=== PATIENT | male | born 1960 | race Caucasian/White ===

== ENCOUNTER → 2016-11-03 | Outpatient (REF) | payer BC ==
[2016-11-03 15:21] LABS: FREE T4 0.93 NG/DL (0.76-1.46)
== END ==
LOC: M SFHCADAM 09:19
PROVIDERS: ATTEND Physician Assistant Medical
DX: E03.9 Hypothyroidism, unspecified (principal)

== ENCOUNTER → 2017-08-05 | Outpatient (REF) | payer BC ==
[2017-08-05 15:56] LABS: ALBUMIN 4.1 GM/DL (3.2-5.2); ALBUMIN/GLOBULIN RATIO 1.17 (1.00-1.93); ALKALINE PHOSPHATASE 83 U/L (45-117); ALT/SGPT 28 U/L (12-78); ANION GAP 8 MEQ/L (8-16); AST/SGOT 19 U/L (7-37); BILIRUBIN,TOTAL 0.8 MG/DL (0.2-1.0); BLOOD UREA NITROGEN 30 MG/DL (7-18); CALCIUM LEVEL 9.4 MG/DL (8.5-10.1); CARBON DIOXIDE LEVEL 29 MEQ/L (21-32); CHLORIDE LEVEL 107 MEQ/L (98-107); CREATININE FOR GFR 1.23 MG/DL (0.70-1.30); FREE T4 1.06 NG/DL (0.76-1.46); GLOMERULAR FILTRATION RATE > 60.0 (>56); GLUCOSE, FASTING 106 MG/DL (70-105); SODIUM LEVEL 144 MEQ/L (136-145); TOTAL PROTEIN 7.6 GM/DL (6.4-8.2)
[2017-08-05 16:02] LABS: POTASSIUM SERUM 5.2 MEQ/L (3.5-5.1)
== END ==
LOC: M SFHCADAM 10:00
DX: E03.9 Hypothyroidism, unspecified (principal)
CPT/HCPCS: 84443

== ENCOUNTER → 2018-05-23 | Outpatient (CLI) | payer BC | LOC: M ADAMS 09:52 | DX: R05 Cough (principal) | CPT/HCPCS: 71046 ==

== ENCOUNTER → 2018-08-08 | Outpatient (REF) | payer BC ==
[2018-08-08 13:44] LABS: BASO # 0.1 10^3/uL (0.0-0.2); BASO % 1.5 % (0.0-1.0); EOS # 0.3 10^3/uL (0.0-0.50); EOS % 6.3 % (0.0-3.0); HEMOGLOBIN 15.3 g/dl (13.5-17.5); LYMPH # 1.5 10^3/uL (1.5-4.5); LYMPH % 28.6 % (24.0-44.0); MEAN CORPUSCULAR HEMOGLOBIN 29.4 pg (27.0-33.0); MEAN CORPUSCULAR HGB CONC 32.6 g/dl (32.0-36.5); MEAN CORPUSCULAR VOLUME 90.2 fl (80.0-96.0); MONO # 0.5 10^3/uL (0.0-0.8); MONO % 9.5 % (0.0-5.0); NEUTROPHILS # 2.9 10^3/uL (1.8-7.7); NEUTROPHILS % 53.5 % (36.0-66.0); PLATELET COUNT, AUTOMATED 184 10^3/uL (150-450); RED BLOOD COUNT 5.21 10^6/uL (4.30-6.10); WHITE BLOOD COUNT 5.4 10^3/uL (4.0-10.0)
[2018-08-08 14:00] LABS: ALBUMIN 3.8 GM/DL (3.2-5.2); ALT/SGPT 41 U/L (12-78); BILIRUBIN,TOTAL 0.8 MG/DL (0.2-1.0); BLOOD UREA NITROGEN 29 MG/DL (7-18); CALCIUM LEVEL 8.8 MG/DL (8.5-10.1); CARBON DIOXIDE LEVEL 27 MEQ/L (21-32); CHLORIDE LEVEL 105 MEQ/L (98-107); CHOLESTEROL LEVEL 234 MG/DL (<200); CHOLESTEROL RISK RATIO 3.441 (<5); CREATININE FOR GFR 1.05 MG/DL (0.70-1.30); GLOMERULAR FILTRATION RATE > 60.0 (>56); GLUCOSE, FASTING 103 MG/DL (70-100); HDL CHOLESTEROL 68 MG/DL (>40); LDL CHOLESTEROL 144 MG/DL (<100); NON-HDL-C 166 MG/DL; POTASSIUM SERUM 4.6 MEQ/L (3.5-5.1); SODIUM LEVEL 141 MEQ/L (136-145); TOTAL PROTEIN 7.5 GM/DL (6.4-8.2); TRIGLYCERIDES LEVEL 110 MG/DL (<150)
[2018-08-08 14:24] LABS: HEMOGLOBIN A1c 5.5 %
== END ==
LOC: M SFHCADAM 07:56
PROVIDERS: ATTEND Physician Assistant Medical
DX: E03.9 Hypothyroidism, unspecified (principal); E66.01 Morbid (severe) obesity due to excess calories

== ENCOUNTER → 2018-11-07 | Outpatient (REF) | payer BC ==
[2018-11-07 12:58] LABS: HEMATOCRIT 46.3 % (42.0-52.0); HEMOGLOBIN 15.1 g/dl (13.5-17.5); MEAN CORPUSCULAR HEMOGLOBIN 29.5 pg (27.0-33.0); MEAN CORPUSCULAR HGB CONC 32.6 g/dl (32.0-36.5); MEAN CORPUSCULAR VOLUME 90.4 fl (80.0-96.0); PLATELET COUNT, AUTOMATED 212 10^3/uL (150-450); RED BLOOD COUNT 5.12 10^6/uL (4.30-6.10); WHITE BLOOD COUNT 5.2 10^3/uL (4.0-10.0)
[2018-11-07 13:10] LABS: BLOOD UREA NITROGEN 27 MG/DL (7-18); CALCIUM LEVEL 8.7 MG/DL (8.5-10.1); CARBON DIOXIDE LEVEL 28 MEQ/L (21-32); CHLORIDE LEVEL 106 MEQ/L (98-107); CREATININE FOR GFR 0.97 MG/DL (0.70-1.30); GLOMERULAR FILTRATION RATE > 60.0 (>56); GLUCOSE, FASTING 108 MG/DL (70-100); SODIUM LEVEL 141 MEQ/L (136-145)
== END ==
LOC: M SFHCADAM 09:10
PROVIDERS: ATTEND Family Medicine
DX: Z87.19 Personal history of other diseases of the digestive system (principal); R10.9 Unspecified abdominal pain

== ENCOUNTER → 2018-11-07 | Outpatient (CLI) | payer BC ==
[~2018-11-07] MED LIST: GASTROGRAFIN SOLUTION 30ML (Q9963) As Ordered ONE; ISOVUE-370 76% 100ML VIAL (Q9967) As Ordered ONE
--- NOTE | 2018-11-07 12:35 | REP ---
CT of the abdomen and pelvis with IV and oral contrast: Comparison is 01/23/2015. There are multiple descending colon and sigmoid colon diverticula as previously. There is colonic wall thickening at the junction of the descending colon and sigmoid colon. There are spiculation into the pericolonic mesentery at the location of wall thickening. The findings are nonspecific and could represent acute on chronic diverticulitis. However, neoplasm is also a diagnostic consideration. The visualized lung ragland are unremarkable. The hepatic parenchyma is unremarkable. A simple cyst is again noted at the medial margin of the right lobe, unchanged. The gallbladder, pancreas, spleen, adrenals and kidneys are unchanged. The abdominal aorta and periaortic area are unchanged. There is no bowel distension or obstruction. The mesentery is otherwise unremarkable. Pelvis: The appendix is unremarkable. There is no ascites or adenopathy. The bladder is unremarkable. There are changes in the distal colon as described. Impression: Wall thickening of the colon at the junction of the descending colon and sigmoid colon where there are multiple diverticula. The wall thickening is accompanied by spiculation into the adjacent mesentery. Findings could represent acute on chronic diverticulitis. However, neoplasm is also a diagnostic consideration. Electronically Signed by Robin Lazar MD 11/07/2018 12:27 P
== END ==
LOC: M RAD 10:07
PROVIDERS: ATTEND Family Medicine
DX: R10.9 Unspecified abdominal pain (principal)
CPT/HCPCS: 74177; Q9963; Q9967

== ENCOUNTER → 2019-03-15 | Outpatient (REF) | payer BC ==
[2019-03-15 14:50] LABS: BASO # 0.1 10^3/uL (0.0-0.2); BASO % 1.3 % (0.0-1.0); EOS # 0.3 10^3/uL (0.0-0.50); EOS % 7.1 % (0.0-3.0); HEMATOCRIT 46.6 % (42.0-52.0); HEMOGLOBIN 15.5 g/dl (13.5-17.5); LYMPH # 1.6 10^3/uL (1.5-4.5); LYMPH % 34.6 % (24.0-44.0); MEAN CORPUSCULAR HEMOGLOBIN 30.6 pg (27.0-33.0); MEAN CORPUSCULAR HGB CONC 33.3 g/dl (32.0-36.5); MEAN CORPUSCULAR VOLUME 91.9 fl (80.0-96.0); MONO # 0.5 10^3/uL (0.0-0.8); MONO % 10.5 % (0.0-5.0); NEUTROPHILS # 2.1 10^3/uL (1.8-7.7); NEUTROPHILS % 45.8 % (36.0-66.0); PLATELET COUNT, AUTOMATED 166 10^3/uL (150-450); RED BLOOD COUNT 5.07 10^6/uL (4.30-6.10); WHITE BLOOD COUNT 4.5 10^3/uL (4.0-10.0)
[2019-03-15 15:03] LABS: ALT/SGPT 55 U/L (12-78); BLOOD UREA NITROGEN 16 MG/DL (7-18); CALCIUM LEVEL 9.2 MG/DL (8.5-10.1); CARBON DIOXIDE LEVEL 27 MEQ/L (21-32); CHLORIDE LEVEL 106 MEQ/L (98-107); CREATININE FOR GFR 1.06 MG/DL (0.70-1.30); GLOMERULAR FILTRATION RATE > 60.0 (>56); GLUCOSE, FASTING 97 MG/DL (70-100); POTASSIUM SERUM 4.6 MEQ/L (3.5-5.1); RHEUMATOID FACTOR QUANT < 10.0 IU/ML (<15.0); SODIUM LEVEL 139 MEQ/L (136-145); TOTAL PROTEIN 7.3 GM/DL (6.4-8.2)
[2019-03-15 15:08] LABS: THYROID PEROXIDASE ANTIBODY 542.3 U/ML (<60.0)
[2019-03-15 15:23] LABS: ERYTHROCYTE SEDIMENTATION RATE 2 mm/hr (0-20)
[2019-03-22 00:06] LABS: ANTINUCLEAR ANTIBODIES DIRECT Negative (Negative); IGE RECEPTOR ABY 1 2.8 (<10); THRYOGLOBULIN ANTIBODIES (ATA) < 1.0 IU/mL (0.0-0.9); THYROGLOBULIN QUANTITATIVE 1.2 ng/mL (1.4-29.2)
== END ==
LOC: M LABSMT 12:51
PROVIDERS: ATTEND Allergy & Immunology Allergy
DX: L50.1 Idiopathic urticaria (principal); L50.3 Dermatographic urticaria

== ENCOUNTER 2019-09-14 07:08 | Inpatient (IN) | payer BC ==
[~2019-09-14] VITALS: Ht 180.3 cm; Wt 111.1 kg
[2019-09-14] MEDS ORDERED: FAMO20TA5 PO (07:16)
[2019-09-14] MEDS ORDERED: LEVO25TA5 PO (07:16)
[2019-09-14] MEDS ORDERED: LEVOTAB10 PO (07:16)
[2019-09-14] MEDS ORDERED: NS 1,000 ML IV ONE (07:45)
[2019-09-14 08:04] LABS: BASO # 0.1 10^3/uL (0.0-0.2); BASO % 0.5 % (0.0-1.0); EOS # 0.2 10^3/uL (0.0-0.5); EOS % 1.9 % (0.0-3.0); HEMATOCRIT 50.8 % (42.0-52.0); HEMOGLOBIN 16.8 g/dl (13.5-17.5); LYMPH # 1.2 10^3/uL (1.5-5.0); LYMPH % 10.9 % (24.0-44.0); MEAN CORPUSCULAR HEMOGLOBIN 29.8 pg (27.0-33.0); MEAN CORPUSCULAR HGB CONC 33.1 g/dl (32.0-36.5); MEAN CORPUSCULAR VOLUME 90.1 fl (80.0-96.0); MONO # 1.1 10^3/uL (0.0-0.8); MONO % 9.8 % (0.0-5.0); NEUTROPHILS # 8.5 10^3/uL (1.5-8.5); NEUTROPHILS % 76.3 % (36.0-66.0); PLATELET COUNT, AUTOMATED 193 10^3/uL (150-450); RED BLOOD COUNT 5.64 10^6/uL (4.30-6.10); WHITE BLOOD COUNT 11.1 10^3/uL (4.0-10.0)
[2019-09-14] MEDS ORDERED: ISOVUE-370 76% 100ML VIAL (Q9967) As Ordered ONE (08:08)
[2019-09-14 08:29] LABS: ALBUMIN 3.8 GM/DL (3.2-5.2); BILIRUBIN,DIRECT 0.3 MG/DL (0.0-0.2); BILIRUBIN,TOTAL 1.4 MG/DL (0.2-1.0); TOTAL PROTEIN 7.8 GM/DL (6.4-8.2)
--- NOTE | 2019-09-14 08:55 | REP ---
Clinical: Left lower quadrant pain. History of diverticulitis. Technique: Axial contrast enhanced images from the lung bases to the pubic symphysis with coronal and sagittal re-formations using 100 ml Isovue 370 intravenous contrast material. Comparison: 11/07/2018. Findings: There is extensive mucosal thickening / enhancement and pericolonic inflammatory stranding surrounding the midsigmoid colon consistent with diverticulitis. There appears to be a 3.1 x 3.1 x 3.5 cm rim enhancing fluid collection extending from the wall of the sigmoid colon into the adjacent superior wall of the bladder with bladder wall thickening / enhancement and surrounding inflammatory change. Findings are consistent with abscess. This abscess collection does not appear to breech the bladder wall and does not definitively demonstrate true fistulous connection into the bladder lumen. There is no evidence for associated bowel obstruction or free air to suggest perforation. Secondary inflammatory changes to the pelvic small bowel is suggested. The remainder of the enteric system is without acute process. Hepatic steatosis with small hepatic cyst noted. Spleen, pancreas, gallbladder, bilateral adrenal glands and kidneys are normal. Further evaluation of the pelvis demonstrates normal prostate/seminal vesicles along with small fat containing a forming inguinal hernias (left greater than right) no significant ascites. No retroperitoneal adenopathy. Vascular structures are normal. Skeletal structures are intact. Lung bases are clear. Impression: Complicated diverticulitis with abscess extending into the anterior superior wall of the bladder and surrounding inflammatory changes to the pelvis. Electronically Signed by Ramon Hawthorne MD 09/14/2019 08:46 A
[2019-09-14] MEDS ORDERED: PIPERACILLIN/TAZOBACTAM SOD 3.375 GM in D5W MINI-BAG PLUS 50 ML IV ONE (09:45)
[2019-09-14] MEDS ORDERED: LR 1,000 ML IV SCH (12:30)
[2019-09-14] MEDS ORDERED: ACETAMINOPHEN TAB 650MG DOSE (2X325MG) PO PRN (13:15)
[2019-09-14] MEDS ORDERED: MORPHINE 2 MG/ML 1ML VIAL (J2270) IV PRN (13:15)
[2019-09-14] MEDS: LR 1,000 ML IV SCH ×2 (14:00→22:47)
[2019-09-14 14:54] VITALS: BP 148/88
[2019-09-14] MEDS: KETOROLAC 30 MG/ML VIAL (J1885) IV PRN (16:54)
[2019-09-14] MEDS: PIPERACILLIN/TAZOBACTAM SOD 3.375 GM in D5W MINI-BAG PLUS 50 ML IV SCH ×2 (16:54→21:16)
[2019-09-14 18:00] VITALS: BP 110/64
--- NOTE | 2019-09-14 18:03 | HPE ---
DATE OF ADMISSION: 09/14/2019 ADMITTING DIAGNOSIS: Sigmoid diverticulitis with abscess. HISTORY OF PRESENT ILLNESS: The patient is a pleasant 58-year-old man who has a history of several prior episodes of diverticulitis. He has not been admitted to the hospital before. He had a colonoscopy in [address] Alvarado had described as being for evaluation post diverticulitis. He presented to the hospital this morning just before 7 a.m. reporting that he on Wednesday past, which would be September 11, developed some fever and some muscle aches and abdominal pain. He described having a strong sensation of his testicles being held in a vice. He noted discomfort with voiding. On Wednesday and Wednesday of this week, he developed some diarrhea. Today, he has actually felt a bit better but does note pain in the lower abdomen near the midline. In the emergency department, he underwent evaluation with some lab work and then had a CT scan of the abdomen and pelvis. The CT shows an approximately 3 cm abscess located between the sigmoid colon and the top of the bladder. There is a small air bubble within the abscess but no evidence of air within the bladder. He is now being admitted to undergo drainage of his abscess and antibiotic therapy for his diverticulitis. ALLERGIES: The patient denies any known drug allergies. CURRENT MEDICATIONS: - famotidine 20 mg by mouth daily as needed - levothyroxine 25 mcg by mouth daily - levocetirizine dihydrochloride 5 mg tablet daily as needed MEDICAL HISTORY: Significant for as some occasional rectal bleeding, and he has been found to have hemorrhoids. He has obesity. He has hypothyroidism. He has had some reflux in the past. PAST SURGICAL HISTORY: He underwent a left knee reconstruction for ligamentous damage in 1980 and had repair of the fingers of his left hand in 2010. 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 He denies tobacco use or significant alcohol intake. FAMILY HISTORY: His mother apparently had colon cancer at age 76, and his father had what sounds like a large colon polyp. He has an older brother with prostate cancer. REVIEW OF SYSTEMS: Reveals no history of chest pain, palpitations, or shortness of breath. He denies any cough, wheezing, or sputum abduction. He has not had any urinary symptoms until he developed the discomfort with voiding associated with his current problem. He has not had any history of kidney stones. He has had some diarrhea recently, just associated with this episode of diverticulitis, but denies any bleeding at this time. He denies any bone or joint issues. He has had no history of deep vein thrombosis (DVT) or pulmonary embolus. He has no history of seizure or stroke. PHYSICAL EXAMINATION: Reveals a pleasant man lying quietly on the emergency room (ER) stretcher. He is alert and oriented. Most recent vital signs show a temperature of 99.5 degrees, pulse of 82, respirations 17, and a blood pressure of 119/75. Room air saturation is normal at 97%. Skin is warm and dry. Sclerae are anicteric. Neck is supple without mass or bruit. Heart exam shows a regular rate and rhythm without murmur. The lungs are clear to auscultation bilaterally. The abdomen is somewhat obese. He has no evident abdominal scars. He has bowel sounds present. There is no tympany to percussion. The upper abdomen is without any tenderness to percussion. He does have some tenderness to percussion at the midline and extending to the left, perhaps 6-8 cm, in the suprapubic area. There is moderate to severe direct tenderness in this area. There is no mass appreciated. He has no evident hernia. There is no edema in the lower extremities. LABORATORY STUDIES: Show today white count of 11,000, hemoglobin of 17, hematocrit of 51, and a platelet count of 193,000. Differential count shows 76% neutrophils, 11% lymphocytes, and 10% monocytes. Chemistry profile shows normal electrolytes with a BUN of 22, creatinine of 1.2, and glucose of 133. His liver function tests show that his total and direct bilirubins are slightly elevated, but his other liver function tests are normal. Lipase is 95. Urinalysis shows specific gravity of greater than 1.060 with pH of 5. He has 1 white cell and 2 red cells per high-power field. The CT scan of the abdomen and pelvis I reviewed personally. This shows a 3 cm abscess between the sigmoid colon and the top of the bladder. He has evidence of some hepatic steatosis. I do note while looking in his x-ray records that he had a CT scan in October 2018 that showed some thickening and mild inflammation in the sigmoid colon at that time, consistent with mild diverticulitis. IMPRESSION: 1. Sigmoid diverticulitis with abscess. 2. Hypothyroidism. DISPOSITION: The patient is being admitted for management of his diverticular abscess. I have recommended that we continue the Zosyn that was started in the emergency room. I will keep him nothing by mouth for now. I have recommended that we obtain a CT-guided drainage of his abscess. I indicated that though he might respond to antibiotics alone, that the response is more certain to be favorable if the abscess is drained in association with the continuing antibiotics. Once the drain has been placed, we can put him back on a diet. Analgesics will be ordered, and I would anticipate he would stay in the hospital for 1-2 days and then be able to be discharged home on antibiotics with the drain in place. The patient had an opportunity to ask questions. These were answered to the best of my ability. He desires to proceed as I have recommended it. AMARILIS
[2019-09-14 22:00] VITALS: BP 135/80
[2019-09-15] VITALS (9 sets, daily range): BP systolic 107–145; BP diastolic 69–93
[2019-09-15] MEDS: PIPERACILLIN/TAZOBACTAM SOD 3.375 GM in D5W MINI-BAG PLUS 50 ML IV SCH ×4 (04:33→22:48)
[2019-09-15] MEDS: KETOROLAC 30 MG/ML VIAL (J1885) IV PRN ×3 (04:34→22:48)
[2019-09-15] MEDS: LR 1,000 ML IV SCH ×3 (06:00→19:46)
[2019-09-15 07:06] LABS: BASO % 0.5 % (0.0-1.0); EOS # 0.4 10^3/uL (0.0-0.5); EOS % 5.1 % (0.0-3.0); HEMATOCRIT 43.4 % (42.0-52.0); LYMPH # 1.1 10^3/uL (1.5-5.0); LYMPH % 14.5 % (24.0-44.0); MEAN CORPUSCULAR HEMOGLOBIN 29.2 pg (27.0-33.0); MEAN CORPUSCULAR HGB CONC 32.3 g/dl (32.0-36.5); MEAN CORPUSCULAR VOLUME 90.4 fl (80.0-96.0); MONO # 0.9 10^3/uL (0.0-0.8); MONO % 11.3 % (0.0-5.0); NEUTROPHILS # 5.4 10^3/uL (1.5-8.5); PLATELET COUNT, AUTOMATED 175 10^3/uL (150-450); WHITE BLOOD COUNT 7.9 10^3/uL (4.0-10.0)
[2019-09-15] MEDS ORDERED: SODIUM BICARBONATE 8.4% INJ 50MEQ 50 ML VIAL As Ordered ONE (10:18)
[2019-09-15] MEDS ORDERED: LIDOCAINE 1% MDV 20ML VIAL As Ordered ONE (10:18)
--- NOTE | 2019-09-15 10:29 | REP ---
Clinical: Bladder wall abscess. Comparison: CT dated 09/14/2019. Findings: A complex collection consistent with abscess is inseparable from the anterosuperior bladder wall and appears to communicate with the adjacent sigmoid colon. Collection measures approximately 5.8 x 2.8 x 3.4 cm. Bladder wall thickening is noted. Bladder volume currently measures 137 ml and appears fluid density without debris or gas to suggest fistula formation with the abscess and colon. Impression: 1. Abscess invading the anterior superior bladder wall extending from the adjacent sigmoid colon. Electronically Signed by Ramon Hawthorne MD 09/15/2019 10:21 A
--- NOTE | 2019-09-15 17:08 | REP ---
Ultrasound-guided abscess drainage The procedure was performed by ALTON Girard, under the direct supervision of Dr. Stephenson. The risks and benefits of the procedure were explained to the patient and informed consent was obtained both verbally and written. Directly prior to the start of the procedure, a formal timeout was completed in the procedure room. Under ultrasound guidance, the pelvic abscess superior to the bladder was localized and skin was marked. The skin was then prepped and draped in a sterile fashion. 15 ml of buffered lidocaine was used as a local anesthetic. Using ultrasound guidance, an 5-Italian multi side-hole catheter was inserted using trocar technique. 24 mL of pus was removed and sent to the laboratory for further analysis. The patient tolerated the procedure well and there were no immediate complications. After the appropriate monitored convalescence the patient was discharged from the department. Reviewed by ALTON Colorado 09/15/2019 01:25 P Electronically Signed by Brayden Stephenson MD 09/15/2019 04:59 P
--- NOTE | 2019-09-15 18:24 | IPN ---
DATE: 09/15/2019 HISTORY: The patient was admitted yesterday with diverticulitis with an abscess between his sigmoid colon and the bladder. He was having primarily voiding symptoms when he presented. Plan was for a CT-guided drainage of his abscess. Apparently, the radiology department could not accommodate this procedure yesterday, and he is scheduled for today. He has remained on Zosyn since admission. Vital signs show that he has been afebrile. His pulse is in the low 80s and his blood pressure is good. Intake and output show that yesterday he had 3000 recorded in (720 of that was oral), and his urine output is incompletely recorded. PHYSICAL EXAMINATION: The patient looks fairly comfortable, lying on the bed. Heart and lung exam was unremarkable. The abdomen is obese, and he still has some moderate direct tenderness low in the left lower quadrant. Laboratory studies this morning show white count of 8000, hemoglobin 14, hematocrit of 43, and a platelet count of 175,000. Differential count shows 68% neutrophils, 14% lymphocytes, and 11% monocytes. IMPRESSION: The patient is doing well with his intravenous (IV) antibiotics. He has been afebrile, though he continues to have pain and tenderness in his left lower quadrant. His white count is down from 11 to 8. PLAN: The patient will have his percutaneous drainage procedure performed today, and we will await the results of this. I would anticipate that he would be able to be discharged home with the catheter in place within the next day or two. I will be going out of town for the next week and will be signing this patient over to Dr. Carbajal for continuing care while I am away. AMARILIS
[2019-09-16 02:00] VITALS: BP 139/83
[2019-09-16] MEDS: PIPERACILLIN/TAZOBACTAM SOD 3.375 GM in D5W MINI-BAG PLUS 50 ML IV SCH ×2 (03:47→10:04)
[2019-09-16 06:00] VITALS: BP 133/72
[2019-09-16] MEDS: LR 1,000 ML IV SCH (06:10)
[2019-09-16] MEDS ORDERED: FLUBLOK(EGG FREE)(QUAD)INFLUENZA VACC 0.5ML SYRINGE (90682)18YRS&OLDER IM ONE (09:00)
[2019-09-16 10:00] VITALS: BP 153/94
[2019-09-16] MEDS ORDERED: METR-265 PO (10:07)
[2019-09-16] MEDS ORDERED: CIPR500T3 PO (10:07)
== END 2019-09-16 11:30 | disposition home or self-care (01) | DRG 223 ==
LOC: M ED 07:08 → M ED INP 13:06 → M MSPAV 14:57
PROVIDERS: ADMIT Surgery; ATTEND Surgery
PROC: 0D9N30Z Drainage of Sigmoid Colon with Drainage Device, Percutaneous Approach (ICD-10-PCS; principal; 2019-09-14)
DX: K57.80 Diverticulitis of intestine, part unspecified, with perforation and abscess without bleeding (principal); E03.9 Hypothyroidism, unspecified; Z79.899 Other long term (current) drug therapy; E66.9 Obesity, unspecified; K64.8 Other hemorrhoids; K21.9 Gastro-esophageal reflux disease without esophagitis

== ENCOUNTER → 2019-09-26 | Outpatient (REF) | payer BC ==
[~2019-09-26] MED LIST changes: +CIPR500T3 PO; +FAMO20TA5 PO; -GASTROGRAFIN SOLUTION 30ML (Q9963) As Ordered ONE; -ISOVUE-370 76% 100ML VIAL (Q9967) As Ordered ONE; +LEVO25TA5 PO; +LEVOTAB10 PO; +METR-265 PO
[2019-09-26 19:52] LABS: APPEARANCE, URINE TURBID (CLEAR); BACTERIA, URINE AUTO NEGATIVE (NEGATIVE); BASO # 0.1 10^3/uL (0.0-0.2); BASO % 0.8 % (0.0-1.0); BILIRUBIN, URINE AUTO NEGATIVE (NEGATIVE); BLOOD, URINE BLOOD NEGATIVE (NEGATIVE); COLOR, URINE YELLOW (YELLOW); EOS # 0.3 10^3/uL (0.0-0.5); EOS % 2.5 % (0.0-3.0); GLUCOSE, URINE (UA) AUTO NEGATIVE (NEGATIVE); HEMATOCRIT 44.9 % (42.0-52.0); HEMOGLOBIN 14.2 g/dl (13.5-17.5); KETONE, URINE AUTO NEGATIVE (NEGATIVE); LEUKOCYTE ESTERASE, URINE AUTO NEGATIVE (NEGATIVE); LYMPH # 1.8 10^3/uL (1.5-5.0); MEAN CORPUSCULAR HEMOGLOBIN 28.9 pg (27.0-33.0); MEAN CORPUSCULAR HGB CONC 31.6 g/dl (32.0-36.5); MEAN CORPUSCULAR VOLUME 91.4 fl (80.0-96.0); MONO # 0.9 10^3/uL (0.0-0.8); MONO % 8.8 % (0.0-5.0); MUCUS, URINE SMALL (NEGATIVE); NEUTROPHILS # 6.9 10^3/uL (1.5-8.5); NEUTROPHILS % 69.4 % (36.0-66.0); NITRITE, URINE AUTO NEGATIVE (NEGATIVE); PLATELET COUNT, AUTOMATED 331 10^3/uL (150-450); PROTEIN, URINE AUTO NEGATIVE (NEGATIVE); RBC, URINE AUTO 0 /HPF (0-3); RED BLOOD COUNT 4.91 10^6/uL (4.30-6.10); SPECIFIC GRAVITY URINE AUTO 1.023 (1.002-1.035); SQUAMOUS EPITHELIAL CELL UR AU 0 /HPF (0-6); UROBILINOGEN, URINE AUTO 0.2 mg/dL (0.0-2.0); WBC, URINE AUTO 4 /HPF (0-3)
[2019-09-26 20:22] LABS: ALBUMIN 3.8 GM/DL (3.2-5.2); ALT/SGPT 35 U/L (12-78); BILIRUBIN,TOTAL 0.5 MG/DL (0.2-1.0); BLOOD UREA NITROGEN 11 MG/DL (7-18); CALCIUM LEVEL 9.1 MG/DL (8.8-10.2); CARBON DIOXIDE LEVEL 30 MEQ/L (21-32); CHLORIDE LEVEL 104 MEQ/L (98-107); CREATININE FOR GFR 1.12 MG/DL (0.70-1.30); GLOMERULAR FILTRATION RATE > 60.0 (>49); GLUCOSE, FASTING 90 MG/DL (70-100); POTASSIUM SERUM 4.6 MEQ/L (3.5-5.1); SODIUM LEVEL 137 MEQ/L (136-145); TOTAL PROTEIN 7.6 GM/DL (6.4-8.2)
== END ==
LOC: M SFHCADAM 14:59
PROVIDERS: ATTEND Physician Assistant Medical
DX: K57.92 Diverticulitis of intestine, part unspecified, without perforation or abscess without bleeding (principal); R35.0 Frequency of micturition; R10.84 Generalized abdominal pain; R68.83 Chills (without fever)

== ENCOUNTER → 2019-09-27 | Outpatient (CLI) | payer BC ==
[~2019-09-27] MED LIST changes: +ISOVUE-370 76% 100ML VIAL (Q9967) As Ordered ONE
--- NOTE | 2019-09-27 09:27 | REP ---
CT ABDOMEN AND PELVIS WITH IV BUT WITHOUT ORAL CONTRAST: HISTORY: Diverticulitis. Urinary frequency and abdominal pain. Chills. Comparison CT study of the abdomen is from September [address] CONTRAST DOSE: 100 mL of intravenous Isovue [address] FINDINGS: Digital preliminary narrow gauge operator radiograph is unremarkable. Lung bases remain clear. There is mild diffuse fatty infiltration of the liver. There is a small hepatic cyst in the right lobe of the liver medially again noted unchanged. No abnormalities noted in the gallbladder or the pancreas. There are tiny cortical cysts affecting the kidneys. No hydronephrosis or renal calculus seen. Normal appendix is noted. Pelvic CT images again demonstrate evidence of sigmoid colon diverticulitis with a pericolonic diverticular abscess on and indenting the superior wall of the urinary bladder. This contains fluid and some air bubbles. It is a little larger measuring 4.8 cm in right to left dimension x 3.6 cm in craniocaudal span x 4.5 cm anterior to posterior. The superior wall the bladder is indented. There is some diffuse bladder wall thickening and some perivesical fat streaking. No evidence of free intraperitoneal air is seen. No other abscess is appreciated. IMPRESSION: Suprapubic/bladder wall abscess associated with the adjacent loop of inflamed sigmoid colon due to diverticulitis. The abscess cavity is somewhat larger than it was on September 14, 2019. Today's measurements 4.8 x 3.6 x 4.5 cm. It should be amendable to percutaneous drainage (ultrasound guidance). Electronically Signed by Brayden Stephenson MD 09/27/2019 02:05 P
== END ==
LOC: M RAD 08:29
PROVIDERS: ATTEND Family Medicine
DX: K57.92 Diverticulitis of intestine, part unspecified, without perforation or abscess without bleeding (principal); R35.0 Frequency of micturition; R10.84 Generalized abdominal pain; R68.83 Chills (without fever); K76.0 Fatty (change of) liver, not elsewhere classified; K76.89 Other specified diseases of liver; N28.1 Cyst of kidney, acquired; N30.80 Other cystitis without hematuria
CPT/HCPCS: 74177; Q9967

== ENCOUNTER → 2019-09-28 | Outpatient (CLI) | payer BC ==
[~2019-09-28] MED LIST changes: -ISOVUE-370 76% 100ML VIAL (Q9967) As Ordered ONE; +LIDOCAINE 1% MDV 20ML VIAL As Ordered ONE
[2019-09-28 14:45] VITALS: BP 124/74
--- NOTE | 2019-09-28 17:35 | REP ---
ULTRASOUND-GUIDED PELVIC ABSCESS DRAIN The procedure was performed under the direct supervision of Dr. Stephenson. The patient has a history of a suprapubic/bladder wall abscess, measuring 4.8 x 3.6 x 4.5 cm, associated with the adjacent loop of inflamed sigmoid colon due to diverticulitis, seen on a previous CT scan dated 09/27/2019. The risks and benefits of the procedure were explained to the patient and informed consent was obtained. The abscess was localized using ultrasound guidance. The skin was prepped and draped in a sterile fashion. 1% lidocaine was used as a local anesthetic. Using ultrasound guidance an 8-S[place] Arabian Skater APDL catheter was inserted using trocar technique. 60 ml of brown/red colored fluid was withdrawn and sent to lab for analysis. The abscess cavity was flushed with four 10 ml aliquots of sterile saline. The catheter was affixed to the skin and a sterile dressing was applied. The catheter was connected to a gravity drainage bag. The patient tolerated the procedure well and there were no immediate complications. After the appropriate amount of monitored convalescence the patient was discharged from the department. Electronically Signed by ALTON Johnson 09/28/2019 04:37 P Electronically Signed by Brayden Stephenson MD 09/28/2019 05:26 P
== END ==
LOC: M IRPRO 12:41
PROVIDERS: ATTEND Surgery
DX: K57.20 Diverticulitis of large intestine with perforation and abscess without bleeding (principal)

== ENCOUNTER → 2020-01-04 | Outpatient (REF) | payer BC ==
[~2020-01-04] MED LIST changes: +FAMO40TA3 PO; -LIDOCAINE 1% MDV 20ML VIAL As Ordered ONE
[2020-01-04 17:57] LABS: BASO # 0.1 10^3/uL (0.0-0.2); BASO % 0.7 % (0.0-1.0); EOS # 0.3 10^3/uL (0.0-0.5); EOS % 3.4 % (0.0-3.0); HEMATOCRIT 46.7 % (42.0-52.0); HEMOGLOBIN 15.1 g/dl (13.5-17.5); LYMPH # 1.5 10^3/uL (1.5-5.0); LYMPH % 17.1 % (24.0-44.0); MEAN CORPUSCULAR HEMOGLOBIN 29.9 pg (27.0-33.0); MEAN CORPUSCULAR HGB CONC 32.3 g/dl (32.0-36.5); MEAN CORPUSCULAR VOLUME 92.5 fl (80.0-96.0); MONO % 11.6 % (0.0-5.0); NEUTROPHILS # 5.9 10^3/uL (1.5-8.5); NEUTROPHILS % 66.6 % (36.0-66.0); PLATELET COUNT, AUTOMATED 259 10^3/uL (150-450); RED BLOOD COUNT 5.05 10^6/uL (4.30-6.10); WHITE BLOOD COUNT 8.8 10^3/uL (4.0-10.0)
[2020-01-04 17:59] LABS: AMORPHOUS SEDIMENT SMALL (NEGATIVE); APPEARANCE, URINE TURBID (CLEAR); BACTERIA, URINE AUTO NEGATIVE (NEGATIVE); BILIRUBIN, URINE AUTO NEGATIVE (NEGATIVE); BLOOD, URINE BLOOD 2+ (NEGATIVE); COLOR, URINE AMBER (YELLOW); GLUCOSE, URINE (UA) AUTO NEGATIVE (NEGATIVE); KETONE, URINE AUTO NEGATIVE (NEGATIVE); LEUKOCYTE ESTERASE, URINE AUTO 2+ (NEGATIVE); MUCUS, URINE LARGE (NEGATIVE); NITRITE, URINE AUTO NEGATIVE (NEGATIVE); PROTEIN, URINE AUTO 2+ mg/dL (NEGATIVE); RBC, URINE AUTO 68 /HPF (0-3); SPECIFIC GRAVITY URINE AUTO 1.036 (1.002-1.035); SQUAMOUS EPITHELIAL CELL UR AU 0 /HPF (0-6); UROBILINOGEN, URINE AUTO 0.2 mg/dL (0.0-2.0); WBC, URINE AUTO TNTC /HPF (0-3)
[2020-01-04 18:29] LABS: ALBUMIN 3.5 GM/DL (3.2-5.2); ALT/SGPT 40 U/L (12-78); BILIRUBIN,TOTAL 0.8 MG/DL (0.2-1.0); BLOOD UREA NITROGEN 16 MG/DL (7-18); CALCIUM LEVEL 8.9 MG/DL (8.8-10.2); CARBON DIOXIDE LEVEL 29 MEQ/L (21-32); CHLORIDE LEVEL 104 MEQ/L (98-107); GLOMERULAR FILTRATION RATE > 60.0 (>49); GLUCOSE, FASTING 92 MG/DL (70-100); POTASSIUM SERUM 4.6 MEQ/L (3.5-5.1); SODIUM LEVEL 138 MEQ/L (136-145); TOTAL PROTEIN 7.6 GM/DL (6.4-8.2)
== END ==
LOC: M SFHCADAM 16:04
PROVIDERS: ATTEND Physician Assistant Medical
DX: R30.0 Dysuria (principal)

== ENCOUNTER → 2020-01-05 | Outpatient (CLI) | payer BC ==
[~2020-01-05] MED LIST changes: +GASTROGRAFIN SOLUTION 30ML (Q9963) As Ordered ONE; +ISOVUE-370 76% 100ML VIAL As Ordered ONE
--- NOTE | 2020-01-05 14:30 | REP ---
CT ABDOMEN AND PELVIS WITH AND WITHOUT IV CONTRAST, WITH ORAL CONTRAST: CT abdomen and pelvis is performed following oral contrast administration, prior to and following the intravenous administration of 100 mL of Isovue 370. Sagittal and coronal reconstruction images are performed. Comparison is made of a prior study of 09/27/2019. Visualized lung bases are clear. There are is diffuse fatty infiltration of the liver. The spleen is normal in size with no intrinsic abnormality. The gallbladder is grossly unremarkable. There is a small cyst of the inferior right lobe of the liver. Adrenal glands are normal. No pancreatic mass is seen. There is a small cyst of the right kidney with no hydronephrosis. There is mild atherosclerotic calcification of the abdominal aorta without aneurysm. There is no adenopathy, free air or free fluid. The appendix is normal. Once again, there is evidence of diffuse sigmoid diverticulitis. Once again, there is an abscess along the dome of the bladder. It is similar in size compared to the prior study of 09/27/2019. It measures approximately 3.0 x 5.5 x 3.8 cm. I suspect that there is a fistula between the sigmoid colon and the abscess cavity. No air is seen in the abscess cavity or in the bladder. The bladder appears mildly thickened. IMPRESSION: Once again, there is evidence of sigmoid diverticulitis. Also, there is again evidence of an abscess along the dome of the bladder. The size is similar to the prior study of 09/27/2019 as discussed above. There also appears to be a fistula from the sigmoid colon to the abscess cavity. Electronically Signed by Robin Calvo MD 01/09/2020 06:35 P
== END ==
LOC: M RAD 11:30
PROVIDERS: ATTEND Physician Assistant Medical
DX: R10.32 Left lower quadrant pain (principal); R31.9 Hematuria, unspecified; K62.89 Other specified diseases of anus and rectum
CPT/HCPCS: 74178; Q9963; Q9967

== ENCOUNTER 2020-01-08 09:26 | Inpatient (IN) | payer BC ==
[~2020-01-08] VITALS: Ht 180.3 cm; Wt 104.0 kg
[~2020-01-08 09:26] MED LIST changes: -FAMO40TA3 PO; -GASTROGRAFIN SOLUTION 30ML (Q9963) As Ordered ONE; -ISOVUE-370 76% 100ML VIAL As Ordered ONE
[2020-01-08] MEDS ORDERED: MORPHINE 2 MG/ML 1ML VIAL (J2270) IV PRN (09:30)
[2020-01-08] MEDS ORDERED: KETOROLAC 30 MG/ML 1ML VIAL IV PRN (09:30)
[2020-01-08] MEDS ORDERED: ACETAMINOPHEN TAB 650MG DOSE (2X325MG) PO PRN (09:30)
[2020-01-08] MEDS ORDERED: oxyCODONE 5MG TAB PO PRN (09:30)
[2020-01-08 10:30] VITALS: BP 130/90
[2020-01-08] MEDS ORDERED: FAMO40TA3 PO (11:03)
[2020-01-08] MEDS ORDERED: METR-265 PO (11:05)
[2020-01-08] MEDS ORDERED: CIPR500T3 PO (11:05)
[2020-01-08] MEDS: LR 1,000 ML IV SCH ×2 (11:06→23:12)
[2020-01-08] MEDS ORDERED: LIDOCAINE 1% MDV 20ML VIAL As Ordered ONE (11:18)
[2020-01-08] MEDS: PIPERACILLIN/TAZOBACTAM SOD 3.375 GM in D5W MINI-BAG PLUS 50 ML IV SCH ×2 (14:29→18:05)
[2020-01-08 16:00] VITALS: BP 121/80
--- NOTE | 2020-01-08 18:27 | REP ---
ULTRASOUND-GUIDED PELVIC ABSCESS DRAIN The procedure was performed under the direct supervision of Dr. Stephenson. The patient has a history of a diverticular abscess along the dome of the bladder seen on a previous CT scan dated 01/05/2020. The risks and benefits of the procedure were explained to the patient and informed consent was obtained. The pelvic abscess was localized using ultrasound guidance. The skin was prepped and draped in a sterile fashion. 1% lidocaine was used as a local anesthetic. Using ultrasound guidance an 8-Japanese Skater APDL catheter was inserted using trocar technique. 30 ml of beige/red colored fluid was withdrawn and sent to lab for analysis. The catheter was affixed to the skin and a sterile dressing was applied. The patient tolerated the procedure well and there were no immediate complications. After the appropriate amount of monitored convalescence the patient was discharged from the department. Electronically Signed by ALTON Johnson 01/08/2020 03:28 P Electronically Signed by Brayden Stephenson MD 01/08/2020 06:18 P
[2020-01-08 20:00] VITALS: BP 135/79
[2020-01-08 23:25] VITALS: BP 119/79
[2020-01-09] MEDS: LR 1,000 ML IV SCH ×2 (00:24→05:32)
[2020-01-09] MEDS: PIPERACILLIN/TAZOBACTAM SOD 3.375 GM in D5W MINI-BAG PLUS 50 ML IV SCH ×4 (00:24→17:54)
--- NOTE | 2020-01-09 00:32 | HPE ---
DATE OF ADMISSION: 01/08/2020 ADMITTING DIAGNOSIS: Sigmoid diverticulitis with abscess. HISTORY OF PRESENT ILLNESS: The patient is a 58-year-old man with a history of several prior episodes of diverticulitis treated on an outpatient basis. In 2014, he had a colonoscopy by Dr. Alvarado in followup of his diverticulitis. He had been admitted in August 2019 with a several-day history of some fevers and lower abdominal pain. A CT scan revealed changes of diverticulitis in the sigmoid colon with an approximately 3 cm abscess located between the sigmoid colon and the top of the bladder. He was treated with antibiotics and seemed to do well. He underwent an ultrasound-guided abscess aspiration on September 15, 2019. His antibiotics were continued. His diet was advanced and he was discharged home on September 16, 2019. Unfortunately, he had returned to the hospital within about a week to 10 days with a recurrent event larger abscess. An ultrasound-guided drain placement was performed, and he was continued on antibiotics. His drain was removed on or about October 04, 2019, and he continued his antibiotics for a short time thereafter. He reports no problems. He did not follow up after that drain removal as he was feeling well. He reports that for as long as perhaps a week, he has had some discomfort in his suprapubic area in particular. He has had some voiding symptoms with frequent urinating that has inhibited his sleep at night. He has not reported any fevers or chills. He saw Olga Stallings in the [facility] on and had laboratory studies obtained. These were not significantly abnormal with a white count of only 9 and 66% neutrophils. He had a CT scan of the abdomen and pelvis obtained on January 05, 2020. This revealed evidence of diffuse sigmoid diverticulitis. There was an abscess noted along the dome of the bladder similar in size to what had been noted on September 27, 2019. The radiologist reported that he suspected a fistula between the sigmoid colon and the abscess cavity. He did report that there was no air seen in the abscess or in the bladder. I was contacted by Olga on Wednesday, January 05, 2020 in the afternoon. We discussed options for management, and he was started on antibiotics with ciprofloxacin and Flagyl. They were instructed to come to my office this morning or come to the emergency department if things worsened over the weekend. When seen in my office this morning, he reported significant voiding symptoms. He still denied any fevers or chills. He was exquisitely tender in the suprapubic area. The patient is now admitted for management of his recurrent diverticulitis with an abscess at the dome of the bladder. ALLERGIES: The patient reports no known drug allergies. MEDICATIONS AT THE TIME OF ADMISSION: The patient reports famotidine 40 mg by mouth nightly, levocetirizine 5 mg by mouth nightly, levothyroxine 25 mcg by mouth daily, and he has been taking ciprofloxacin and Flagyl for 1-2 days each. SURGICAL HISTORY: Significant for knee surgery for damage in 1980. He has had bilateral knee replacements subsequently. He had a repair of fingers of his left hand in 2010. MEDICAL HISTORY: His medical history is significant for obesity, hypothyroidism, and a history of some gastroesophageal reflux. 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 He denies any tobacco use or significant alcohol intake. FAMILY HISTORY: His mother had colon cancer age 76, and his father had what sounds like a large colon polyp. He has an older brother with prostate cancer. REVIEW OF SYSTEMS: Patient has had no chest pain or palpitations. He denies shortness of breath, cough or wheezing. He has not had a stroke or a mini stroke and denies any history of seizures. He denies any history of deep vein thrombosis (DVT) or pulmonary embolus. He had been feeling well for about 3 months since his last abscess was drained in early September. He has been voiding previously well but now is having multiple smaller voids about every 2 hours with significant pain. He has been eating very little over this past weekend. He denies any new bone or joint issues. PHYSICAL EXAM: Reveals a pleasant man who appears somewhat uncomfortable. He is alert and oriented. Vital signs: On admission showed temperature of 97.3, pulse of 82, respirations of 16 and a blood pressure of 130/90. Sclerae are anicteric. Mucous membranes are moist. Neck is supple without bruit. Heart exam shows a regular rate and rhythm. Lungs are clear to auscultation bilaterally. The abdomen is somewhat obese. He has some bowel sounds present. There is no tympany to percussion. There is moderate to marked tenderness to percussion in the suprapubic area near the midline and extending into the left lower quadrant. The upper abdomen is without significant tenderness. There is no sign of hernia. Extremities are without significant edema, and he has palpable radial and pedal pulses. His laboratory studies from the January 04, 2020 show a white count of 9, hemoglobin 15, hematocrit of 47 and a platelet count of 259,000. Differential count showed 67% neutrophils, 17% lymphocytes and 12% monocytes. Chemistry profile showed normal electrolytes with BUN of 16, creatinine 1.1 and a glucose of 92. Liver function tests were entirely normal. He did have a C-reactive protein that was 11.1. He had a urinalysis that showed too numerous to count white cells with 68 red cells. A culture from the is growing Streptococcus Gordonii. I reviewed his CT scan images from the January 05, 2020. The scan shows some fairly diffuse thickening and inflammation in the sigmoid colon. The sigmoid colon is fairly straight extending from the left lower quadrant where it meets the descending down into the pelvis. He has some obvious diverticulosis with marked inflammation. There is an air fluid accumulation at the anterior-superior aspect of the bladder. This is much better delineated on the after IV contrast images. This fluid collection is immediately adjacent to the sigmoid colon. There is no air seen in the abscess or in the bladder. IMPRESSION: 1. Recurrent sigmoid diverticulitis with abscess. 2. Hypothyroidism. 3. History of gastroesophageal reflux. 4. Obesity. PLAN: The patient is being admitted to the hospital for intravenous antibiotics and placement of an ultrasound-guided drain into his abscess. The patient clearly has significant diverticular disease, and I believe a resection would be appropriate. He now has his second episode of diverticulitis with development of an abscess between the colon and the bladder. He does have a urinary tract infection noted on urinalysis and culture from January 04, 2020. It may be that effectively he has a colovesical fistula, but he has not complained of any pneumaturia and there was no air seen in the bladder or abscess at the time of his recent CT scan. The patient will be kept nothing by mouth initially. I did speak with Dr. Fidencio Stephenson of radiology who has indicated that it should be possible to have the drain placed. We will keep him in the hospital after drain placement to continue his intravenous antibiotics and determine how best to proceed. It may be reasonable once his abscess has been drained and he has been on antibiotics for a couple of days to proceed directly to the surgery. The alternative would be to continue the drain and antibiotics until his drain can be removed and then wait for his inflammation to resolve before proceeding with surgery. It may be that he will not completely resolve his inflammation or develop another recurrence of infection prior to our being able to schedule him for surgery. We will discuss these issues over the next day or two to determine our course of action. Once the drain has been in place, he can be started back on some clear liquids.
[2020-01-09 02:00] VITALS: BP 103/57
[2020-01-09 06:00] VITALS: BP 105/58
[2020-01-09 08:16] LABS: BASO # 0.1 10^3/uL (0.0-0.2); EOS # 0.3 10^3/uL (0.0-0.5); EOS % 4.7 % (0.0-3.0); HEMATOCRIT 42.7 % (42.0-52.0); HEMOGLOBIN 14.1 g/dl (13.5-17.5); LYMPH % 17.3 % (24.0-44.0); MEAN CORPUSCULAR HEMOGLOBIN 29.8 pg (27.0-33.0); MEAN CORPUSCULAR VOLUME 90.3 fl (80.0-96.0); MONO # 0.6 10^3/uL (0.0-0.8); MONO % 11.1 % (0.0-5.0); NEUTROPHILS # 3.8 10^3/uL (1.5-8.5); NEUTROPHILS % 64.9 % (36.0-66.0); PLATELET COUNT, AUTOMATED 279 10^3/uL (150-450); RED BLOOD COUNT 4.73 10^6/uL (4.30-6.10); WHITE BLOOD COUNT 5.8 10^3/uL (4.0-10.0)
[2020-01-09 08:38] LABS: BLOOD UREA NITROGEN 13 MG/DL (7-18); CALCIUM LEVEL 8.4 MG/DL (8.8-10.2); CARBON DIOXIDE LEVEL 26 MEQ/L (21-32); CHLORIDE LEVEL 107 MEQ/L (98-107); CREATININE FOR GFR 1.04 MG/DL (0.70-1.30); GLOMERULAR FILTRATION RATE > 60.0 (>49); GLUCOSE, FASTING 120 MG/DL (70-100); POTASSIUM SERUM 4.1 MEQ/L (3.5-5.1); SODIUM LEVEL 139 MEQ/L (136-145)
[2020-01-09 10:00] VITALS: BP 139/77
[2020-01-09 14:00] VITALS: BP 140/82
[2020-01-09 18:00] VITALS: BP 138/80
[2020-01-09 22:00] VITALS: BP 116/74
[2020-01-10] MEDS: PIPERACILLIN/TAZOBACTAM SOD 3.375 GM in D5W MINI-BAG PLUS 50 ML IV SCH ×3 (00:48→11:29)
[2020-01-10 02:00] VITALS: BP 115/57
[2020-01-10] MEDS: LR 1,000 ML IV SCH (02:24)
[2020-01-10 06:00] VITALS: BP 115/60
[2020-01-10 10:00] VITALS: BP 113/68
--- NOTE | 2020-01-10 16:53 | IPN ---
DATE: 01/09/2020 HISTORY: The patient was admitted on the for treatment of a diverticular abscess adjacent to the dome of the bladder. He underwent an ultrasound-guided drain placement. He was noted on urine culture last week to have a Streptococcus urinary tract infection (UTI) when his gram stain from his drain placement showed gram-positive cocci and chains. Vital signs show that he has been afebrile since yesterday. His pulse is in the 60s and 70s only. Blood pressure is good. Intake and output shows that he has been taking some clear liquids well since yesterday evening. His urine output is good and his drain was recorded as having only 20 mL yesterday and 10 mL this morning. PHYSICAL EXAMINATION: The patient is awake and alert. He appears fairly comfortable at rest. He reports that he has little discomfort at rest. His urinary symptoms seem to have diminished somewhat. He has had no chills. He is tolerating liquids well with no nausea or vomiting. The abdomen is mildly obese but soft, though he is still somewhat tender in the area of his suprapubic drain. Laboratory studies show that his white count is 6 with a hemoglobin of 14, hematocrit of 43 and a platelet count of 279,000. Differential count shows 65% neutrophils, 17% lymphocytes, and 11% monocytes. Chemistry profile shows normal electrolytes, BUN 13, creatinine 1.0, and a glucose of 120. IMPRESSION: The patient is doing very well postop day #1 from ultrasound-guided drainage of his hairy vesicle abscess. PLAN: He will be continued on his IV Zosyn today. He was advised that he should remain on a low fiber diet for a few days at least to make sure that there is no evidence of significant narrowing in the sigmoid colon. We discussed the option of remaining in the hospital for possibly later in the week or discharge. He would favor going home in the morning. I think this is a reasonable approach and barring any unforeseen change between now in the morning we will plan on sending him home in the morning to complete a course of outpatient antibiotics.
--- NOTE | 2020-01-10 16:55 | IPN ---
DATE: 01/10/2020 HISTORY: The patient had his diverticular abscess adjacent to the bladder drained on the . He has remained afebrile with a pulse in the 60s to 70s and good blood pressure. Intake and output shows that he has had 20 mL out of his drain yesterday and 10 mL this morning. He is voiding well and reports that his urinary symptoms have diminished quite a bit. Physical exam shows that the abdomen is obese but soft, and his tenderness is clearly much less. The drain has a small amount of serosanguineous fluid in the tubing. IMPRESSION: The patient is doing well 2 days out from his drain placement with treatment with Zosyn. PLAN: The patient will be discharged home today. He has prescriptions for ciprofloxacin and Flagyl that he received on Wednesday of this past week, that is the . He will resume taking the Cipro and Flagyl. He has not been using any pain medications in the hospital and I will not provide him with any prescriptions. He can continue his other usual medications. I will plan on seeing him back in the office early next week, probably Wednesday the to consider removal of his drain. We will then start working toward a date for a sigmoid colectomy to try to eliminate the source of his recurrent abscess. He will contact my office if he develops any increased problems in the meantime.
== END 2020-01-10 13:22 | disposition home or self-care (01) | DRG 244 ==
LOC: M PCU 09:53 → M MSPAV 23:24
PROVIDERS: ADMIT Surgery; ATTEND Surgery
PROC: 0W9G40Z Drainage of Peritoneal Cavity with Drainage Device, Percutaneous Endoscopic Approach (ICD-10-PCS; principal; 2020-01-08 12:00)
DX: K57.80 Diverticulitis of intestine, part unspecified, with perforation and abscess without bleeding (principal); E03.9 Hypothyroidism, unspecified; E66.9 Obesity, unspecified; K21.9 Gastro-esophageal reflux disease without esophagitis; Z79.899 Other long term (current) drug therapy; Z96.651 Presence of right artificial knee joint; Z96.652 Presence of left artificial knee joint

== ENCOUNTER → 2020-02-02 | Outpatient (CLI) | payer BC ==
[~2020-02-02] MED LIST changes: +2 ANTIBIOTICS PO; +ACET-683 PO; +FAMO40TA3 PO; +SULF400T14 PO
== END ==
LOC: M LABSMTC 12:41
PROVIDERS: ATTEND Anesthesiology
DX: Z01.818 Encounter for other preprocedural examination (principal); Z11.59 Encounter for screening for other viral diseases
CPT/HCPCS: C9803; U0003

== ENCOUNTER 2020-02-06 08:21 | Inpatient (IN) | payer BC ==
--- NOTE | 2020-02-05 09:05 | HPE ---
DATE OF ADMISSION: 02/06/2020 CHIEF COMPLAINT: Recent recurrent sigmoid diverticulitis with abscess. HISTORY OF PRESENT ILLNESS: The patient is a 59-year-old man who is being admitted to undergo an elective sigmoid resection for recurring episodes of sigmoid diverticulitis and abscess. The patient has had several prior episodes of diverticulitis treated on an outpatient basis. In 2014, a colonoscopy was performed that revealed a few small mouth diverticula in the sigmoid colon. A single hyperplastic polyp was identified and biopsied at that time. The patient was admitted to [facility] in August 2019 with a several-day history of fevers and lower abdominal pain. A CT scan revealed changes of diverticulitis in the sigmoid colon with an approximately 3 cm abscess located between the sigmoid colon and the top of the bladder. He was initially treated with antibiotics and seemed to improve. An ultrasound-guided aspiration of his abscess was performed on September 15. His antibiotics were continued and he was discharged on September 16. Unfortunately, he returned to the hospital within about week to 10 days with a recurrent larger abscess. A drain was placed by ultrasound guidance and the abscess resolved with continued antibiotic therapy. The patient returned in about mid December with complaints of discomfort in the suprapubic area with frequent urination that inhibited his night time sleep. He was seen by his primary provider Olga Stallings in the [facility]. A CT scan of the abdomen and pelvis was obtained on January 04. This revealed diffuse sigmoid diverticulitis with recurrence of an abscess along the dome of the bladder between the sigmoid colon and the bladder. The radiologist reported that he suspected a fistula between the sigmoid colon and the abscess cavity. There was no air seen in the abscess or within the bladder at that time to confirm a colovesical fistula. The patient was admitted to [facility] on January 07 for further treatment. An ultrasound-guided drain placement was performed and he was continued on IV antibiotics. We had initially discussed possible surgery at that time, but elected instead to treat him for resolution of his abscess and have him come back for surgery. He was discharged from the hospital on January 09 and his drain was removed on the . He was continued on antibiotics until about the end of December and has had no further problems. He is now being admitted electively to undergo a robotic-assisted laparoscopic sigmoid colectomy. He will be performing a full mechanical and antibiotic bowel preparation the day before admission using SUPREP, neomycin, and Flagyl. ALLERGIES: The patient reports NO KNOWN DRUG ALLERGIES. MEDICATIONS: Include famotidine 40 mg by mouth daily, Synthroid 25 mcg by mouth daily and levocetirizine 5 mg by mouth daily. He has been taking Aleve p.r.n. for discomfort. MEDICAL HISTORY: Significant for obesity. He has hypothyroidism and a history of some gastroesophageal reflux disease. SURGICAL HISTORY: Significant for left knee reconstruction in 1980. He subsequently had bilateral knee replacements. He had a repair of the fingers of his left hand in 2010. 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 He denies any tobacco use or significant alcohol use. He denies any recreational drug use. FAMILY HISTORY: Father apparently has had what sounds like a large colon polyp and his mother had colon cancer at age 76. He has an older brother with prostate cancer. REVIEW OF SYSTEMS: The patient denies any chest pain or palpitations. He has no history of shortness of breath, cough or wheezing. He has not had a stroke or mini stroke and denies any history of seizures. He denies any history of deep vein thrombosis (DVT) or pulmonary embolus. He is not having any current gastrointestinal or urinary symptoms. He denies any new bone or joint issues. PHYSICAL EXAMINATION: Reveals a pleasant man in no acute distress. His weight is 235 pounds with a height of 5 feet 11 inches. This gives him a body mass index (BMI) of approximately 33. Sclerae are anicteric. Mucous membranes are moist. Neck is supple. He has no palpable lymphadenopathy and he has no cervical bruit. Lungs are clear to auscultation bilaterally. Heart exam shows a regular rate and rhythm which is not tachycardiac. The abdomen is mildly to moderately obese. He has active bowel sounds. The abdomen is soft and nontender without appreciable mass. There is no evidence of inguinal hernia. Extremities are without edema. He has bilateral knee scars consistent with prior surgery. He has palpable radial and pedal pulses bilaterally. IMPRESSION: 1. Recent recurrent acute sigmoid diverticulitis with abscess. 2. Hypothyroidism. 3. Obesity. 4. Gastroesophageal reflux disease. PLAN: The patient is being admitted to undergo a robotic-assisted laparoscopic sigmoid colectomy for recurring episodes of sigmoid diverticulitis with two episodes of abscess formation between the sigmoid colon and the bladder. He will perform a mechanical and antibiotic bowel preparation the day before admission. He will receive preoperative antibiotics intravenously as well. We will place a Eldridge catheter in the operating room. The plan is to proceed with a robotic-assisted laparoscopic surgery. He is without doubt going to have significant scarring between the sigmoid colon and the bladder. This may be severe enough to warrant conversion to an open procedure. It may also lead to a bladder perforation which would require repair. The patient was counseled that he should anticipate a hospital stay of perhaps 3-5 days. If conversion to an open procedure is necessary then his hospital stay may be longer. The risks of the procedure were discussed. Risks include, but are not limited to bleeding, infection, scarring, adverse drug reaction, need for further surgery, injury to internal organ, anastomotic leak, and hernia. He had an opportunity to ask questions. He desires to proceed with the surgery as I have outlined it. AMARILIS
[~2020-02-06] VITALS: Ht 180.3 cm; Wt 102.2 kg
[~2020-02-06 08:21] MED LIST changes: -2 ANTIBIOTICS PO; +LR 1,000 ML IV ONE
[2020-02-06] MEDS ORDERED: LACRILUBE (AKWA TEARS) OPHTH OINT 3.5 GM As Ordered ONE (08:26)
[2020-02-06] MEDS ORDERED: ROCURONIUM BROMIDE 50 MG/5 ML VIAL As Ordered ONE ×5 (08:30→16:43)
[2020-02-06] MEDS ORDERED: LIDOCAINE 2% 100MG/5ML SDV (FOR ANES.) As Ordered ONE ×5 (08:30→14:36)
[2020-02-06] MEDS ORDERED: propofoL 200 MG/20 ML VIAL As Ordered ONE (08:30)
[2020-02-06] MEDS ORDERED: MIDAZOLAM INJ 2MG/2ML VIAL (J2250 PER 1MG) As Ordered ONE (08:31)
[2020-02-06] MEDS ORDERED: fentaNYL 100 MCG/2 ML INJECTION (J3010) As Ordered ONE (08:31)
[2020-02-06] MEDS ORDERED: ONDANSETRON 4MG/2ML VIAL As Ordered ONE (08:32)
[2020-02-06] MEDS ORDERED: dexameTHASONE 4 MG/ML 1ML VIAL (J1100 PER 1MG) As Ordered ONE (08:32)
[2020-02-06] MEDS ORDERED: ACETAMINOPHEN 1000MG 100ML IV BTL (OFIRMEV) (J0131 PER 10MG) As Ordered ONE (08:34)
[2020-02-06] MEDS ORDERED: KETOROLAC 60MG 2ML VIAL As Ordered ONE (08:48)
[2020-02-06] MEDS ORDERED: SUGAMMADEX SODIUM 500 MG/5 ML VIAL (BRIDION) As Ordered ONE (08:48)
[2020-02-06] MEDS ORDERED: cefoTEtan DISODIUM 2 GM in D5W MINI-BAG PLUS 50 ML IV ONE (09:30)
[2020-02-06] MEDS ORDERED: ALVIMOPAN 12 MG CAPSULE (ENTEREG) PO ONE (09:30)
[2020-02-06] MEDS ORDERED: 2 ANTIBIOTICS PO (09:35)
[2020-02-06] MEDS ORDERED: BUPIVACAINE HCL 0.25% 30ML VIAL As Ordered ONE (10:22)
[2020-02-06] MEDS ORDERED: METHYLENE BLUE 0.5% (5MG/ML) 10 ML AMP (PROVAYBLUE) As Ordered ONE (10:29)
[2020-02-06] MEDS ORDERED: ALBUTEROL 6.7GM INHALER **FOR ANES. CART/OMNICELL ONLY As Ordered ONE (11:37)
[2020-02-06] MEDS ORDERED: fentaNYL 100 MCG/2 ML INJECTION (J3010) IV PRN (18:30)
[2020-02-06] MEDS ORDERED: LR 1,000 ML IV SCH (18:30)
[2020-02-06] MEDS ORDERED: oxyCODONE 5MG TAB PO PRN ×2 (18:30)
[2020-02-06] MEDS ORDERED: ACETAMINOPHEN TAB 650MG DOSE (2X325MG) PO PRN (18:30)
[2020-02-06] MEDS ORDERED: ONDANSETRON 4MG/2ML VIAL IV PRN ×2 (18:30)
[2020-02-06] MEDS ORDERED: MORPHINE 2 MG/ML 1ML VIAL (J2270) IV PRN (18:30)
[2020-02-06] MEDS ORDERED: KETOROLAC 30 MG/ML 1ML VIAL IV PRN (18:30)
[2020-02-06] MEDS ORDERED: METOCLOPRAMIDE INJ 10MG/2ML VIAL (J2765 PER 1) IV PRN (18:30)
[2020-02-06 19:00] VITALS: BP 130/70
[2020-02-06 19:30] VITALS: BP 107/65
[2020-02-06] MEDS: LR 1,000 ML IV SCH ×2 (19:57→23:49)
[2020-02-06 20:00] VITALS: BP 107/65
[2020-02-06 21:00] VITALS: BP 110/81
[2020-02-06 22:00] VITALS: BP 114/81
[2020-02-06 23:00] VITALS: BP 119/71
[2020-02-06] MEDS ORDERED: cefoTEtan DISODIUM 1 GM in D5W MINI-BAG PLUS 50 ML IV ONE (23:30)
[2020-02-07] VITALS (9 sets, daily range): BP systolic 130–140; BP diastolic 72–88; O2SAT 98–99
[2020-02-07] MEDS: LEVOTHYROXINE 25MCG TABLET (0.025MG) PO SCH (06:04)
[2020-02-07 07:12] LABS: BASO % 0.3 % (0.0-1.0); EOS % 0.1 % (0.0-3.0); HEMATOCRIT 40.3 % (42.0-52.0); LYMPH # 1.1 10^3/uL (1.5-5.0); LYMPH % 14.6 % (24.0-44.0); MEAN CORPUSCULAR HEMOGLOBIN 29.7 pg (27.0-33.0); MEAN CORPUSCULAR HGB CONC 32.3 g/dl (32.0-36.5); MEAN CORPUSCULAR VOLUME 92.2 fl (80.0-96.0); MONO # 0.8 10^3/uL (0.0-0.8); MONO % 10.6 % (0.0-5.0); NEUTROPHILS # 5.5 10^3/uL (1.5-8.5); PLATELET COUNT, AUTOMATED 161 10^3/uL (150-450); RED BLOOD COUNT 4.37 10^6/uL (4.30-6.10); WHITE BLOOD COUNT 7.5 10^3/uL (4.0-10.0)
[2020-02-07 07:18] LABS: BLOOD UREA NITROGEN 13 MG/DL (7-18); CALCIUM LEVEL 8.4 MG/DL (8.8-10.2); CARBON DIOXIDE LEVEL 27 MEQ/L (21-32); CHLORIDE LEVEL 107 MEQ/L (98-107); CREATININE FOR GFR 1.03 MG/DL (0.70-1.30); GLOMERULAR FILTRATION RATE > 60.0 (>49); GLUCOSE, FASTING 114 MG/DL (70-100); POTASSIUM SERUM 3.9 MEQ/L (3.5-5.1); SODIUM LEVEL 140 MEQ/L (136-145)
[2020-02-07] MEDS: LR 1,000 ML IV SCH (07:51)
[2020-02-07] MEDS: FAMOTIDINE 20 MG TAB PO SCH (07:52)
[2020-02-07] MEDS: ENOXAPARIN 40MG/0.4ML SYRINGE (J1650 PER 10MG) SC SCH (07:52)
[2020-02-08 01:28] VITALS: O2SAT 95
[2020-02-08 02:00] VITALS: BP 137/76
[2020-02-08 04:00] VITALS: BP 137/76
[2020-02-08 06:00] VITALS: BP 137/76
[2020-02-08] MEDS: LEVOTHYROXINE 25MCG TABLET (0.025MG) PO SCH (06:30)
[2020-02-08] MEDS: FAMOTIDINE 20 MG TAB PO SCH (08:02)
[2020-02-08] MEDS: ENOXAPARIN 40MG/0.4ML SYRINGE (J1650 PER 10MG) SC SCH (08:03)
[2020-02-08 10:00] VITALS: BP 132/74
--- NOTE | 2020-02-08 11:06 | IPN ---
DATE OF SERVICE: 02/07/2020 HISTORY: The patient is postoperative day #1 from a robotic-assisted laparoscopic sigmoid resection for diverticulitis with abscess. He required a mobilization of the distal transverse and splenic flexures of the colon to achieve adequate length for an anastomosis. The patient has tolerated clear liquids well. He is voiding well and reports he has had some flatus. He has had no pain medicines since surgery. VITAL SIGNS: Show that he has been afebrile. His pulse is in the 70s and 80s. Blood pressure is good. His oxygen saturation is fine. INTAKE AND OUTPUT: Show that he has had 4300 in yesterday with 250 recorded out, but he has been walking to the bathroom. He has brisk urine output this morning. PHYSICAL EXAMINATION: The patient is lying quietly on the hospital bed looking comfortable. Heart examination shows a regular rhythm. He is breathing easily. The abdomen is obese. His dressings are clean and dry. He has bowel sounds present. There is some mild tympany to percussion, but the abdomen is not particularly distended, and there is no undue tenderness. LABORATORY STUDIES: Show a white count of 8, hemoglobin 13, hematocrit 40, and platelet count of 161,000. Chemistry profile shows normal electrolytes, BUN, creatinine, and a glucose of 114. IMPRESSION: The patient is doing very well 1 day postoperative from his sigmoid colectomy. He has tolerated clear liquids well and is voiding without difficulty. PLAN: His IV will be stopped. He will be advanced to a regular diet. I will provide some oral analgesics as necessary. I would anticipate he will be ready for discharge in the next 1-2 days. AMARILIS
[2020-02-08 14:00] VITALS: BP 123/79
--- NOTE | 2020-02-09 09:59 | IPN ---
DATE: 02/08/2020 HISTORY: The patient is postop day #2 from a robotic-assisted laparoscopic sigmoid resection with colorectostomy and takedown of the splenic flexure. He is doing marvelously. He reports that he is eating regular food, has been up walking and has no pain and has taken no pain medicines. He is passing flatus but has not yet had a bowel movement. He is voiding without difficulty or pain. Vital signs show that he has been afebrile over the past 24 hours. His pulse is in the 70s to 90s. Blood pressure is good. Room air oxygen saturation is normal. Intake and output show that yesterday he had 1700 in with 3000 out. He has had a good intake and output today. PHYSICAL EXAMINATION: The patient is sitting up in the sofa by the window in his room. He is alert and oriented and appears quite comfortable. Heart exam shows a regular rhythm. The abdomen is obese but soft, and he has active bowel sounds. His dressings are clean and dry. He has no undue tenderness. IMPRESSION: The patient is doing very well postop day #2 from a sigmoid colectomy. PLAN: The patient will be discharged home today. He was counseled that he can take a regular diet as tolerated but he should not force it. He was advised to avoid any strenuous physical activity or heavy lifting for the next 4 weeks. He can take mild [id number] analgesics as necessary, but I will not provide him with any prescription for pain medications as he has no need. He can pursue light activity as tolerated. He can shower anytime but should leave the Steri-Strips to come off on their own. He was counseled to call the office as needed for any problems including fevers or chills, increasing abdominal pain, or redness of the wound suggesting infection. He should followup routinely in the office in 10-14 days with me. AMARILIS
--- NOTE | 2020-02-14 17:01 | RO ---
DATE OF PROCEDURE: 02/06/2020 PREOPERATIVE DIAGNOSIS: Recurrent sigmoid diverticulitis with abscess. POSTOPERATIVE DIAGNOSIS: Recurrent sigmoid diverticulitis with abscess. PROCEDURES PERFORMED: 1. Robotic-assisted laparoscopic sigmoid resection with colorectal anastomosis and extensive lysis of adhesions. 2. Mobilization of splenic flexure of colon. SURGEON: Dr. Streeter CANCER SPEC: Dr. Alvarado SECOND CLINICAL PRODUCT MANAGER: Julianna Chu, [facility] Dr. Alvarado was necessary for assistance in preparation of the distal end of colon for the anastomosis and to perform the anastomosis. Julianna Chu assistance was necessary for placement of the robotic trocars, manipulation of the da Claus surgical system with change of instruments. ANESTHESIA: General. INDICATIONS FOR THE PROCEDURE: Patient is a 59-year-old man who has had two episodes of severe sigmoid diverticulitis with development of an abscess between the sigmoid colon and the bladder over the last 6 months. On each occasion he has required percutaneous drainage of the abscess with antibiotic therapy. He is now for a robotic-assisted laparoscopic sigmoid resection. It is anticipated that there will be significant scarring to the region of the bladder. OPERATIVE PROCEDURE: The patient was brought to the operating room and placed on the table in supine position. Thromboembolism deterrents (TEDs) and sequentials were utilized. He was placed under general endotracheal anesthesia. He was moved into a low lithotomy position with his lower extremities in padded leg holders. A Eldridge catheter was inserted. Digital rectal examination was performed, which revealed no palpable abnormalities with no evidence of anal stricture. There was a small amount of watery, yellowish prep released after the examination. The patient's abdomen was prepped and draped in a sterile fashion. 0.25% Marcaine was infiltrated at the trocar sites as needed. The initial entry into the abdomen was along the midline in the supraumbilical region. A short longitudinal incision was made. A Veress needle was inserted. After a positive hanging drop test, the abdomen was insufflated with carbon dioxide gas. An 8 mm robotic port was placed over the endoscope and inserted through the abdominal wall without difficulty. Initial examination showed no evidence of trocar or Veress needle injury. There was no evidence of adhesions in the mid or upper abdomen. An 8 mm port was placed in the left upper quadrant. A 12 mm port and 8 mm port were then placed in the right lower quadrant slightly below the level of the umbilicus and then in the low right lower quadrant respectively. The patient was tilted to approximately 15 degrees of Trendelenburg. Inspection in the left lower quadrant revealed adhesions of the sigmoid colon to the anterior abdominal wall. The patient cart of the da Claus Xi system was then brought into position. The endoscope arm was docked to the 12 mm port in the right lower quadrant. Targeting took place in the left lower quadrant at the sigmoid. The other robotic arms were then docked appropriately. A grasping retractor, Force bipolar, and cauterizing scissors were then inserted through the remaining arms. I then moved to the control console. During this portion of the procedure, Julianna Chu served as the research lab assistant to manage the robot and change instruments as necessary. Attention was focused initially on the sigmoid colon. There were a few filmy adhesions attaching the sigmoid colon and pericolonic tissues to the anterior abdominal wall. These were initially lysed with a combination of sharp and cautery dissection. The colon was adherent to the anterior abdominal wall by some inflammatory adhesions as well and some of this could be broken apart bluntly. At this point, rather than proceeding with further takedown of the sigmoid, I worked up along the descending colon dividing the lateral attachment of the descending all the way to the splenic flexure. The colon was mobilized medially freeing through the avascular plane. This portion of the colon did not appear thickened or inflamed. Returning to the region of the sigmoid there was a fairly abrupt change in the colon at the transition from the descending to sigmoid colon where the colon became quite thickened and inspection in the pelvis was facilitated by tilting the patient to approximately 25 degrees of head down. The terminal ileum was identified at the area of the sacral promontory and a few filmy attachments in this area were lysed to allow the terminal ileum to fall out of the way. There were no significant adhesions in the pelvis except for the sigmoid colon adherent to the anterolateral aspect of the pelvic wall in the region of the dome of the bladder as was anticipated. Dissection then continued to free the colon from the attachments to the anterolateral wall of the pelvis. A plane was developed between the wall and the colon staying very close to the wall of the colon. This was accomplished with a combination of sharp and blunt dissection and cautery. A collection of inflammatory tissue and debris was entered consistent with his previously noted abscess between the sigmoid and dome of the bladder. This was cleared of debris using the suction virtual classroom manager to remove the lining of what appeared to be granulation tissue. With further dissection the anterolateral attachments were completely freed. As the sigmoid colon was then mobilized medially, there were two other small collections of debris and granulation in the left pericolic gutter consistent with small collections of debris from his recent acute diverticulitis. At this point, a point for transection of the colon was identified proximally. An opening was created through the mesentery using a vessel sealer and the colon was divided with a single green load of the 60 mm stapler. Dissection was then carried distally staying close to the posterior wall of the colon. This was primarily accomplished using the vessel sealer. The mesentery of the sigmoid colon was quite thickened and firm. The dissection was therefore somewhat slowed but progress continued. I stayed close to the wall of the bowel to avoid getting into the retroperitoneum and the left ureter was not seen. Dissection was carried distally across the sacral promontory. The peritoneum on the right and left sides of the rectosigmoid region were opened with the vessel sealer. The tissues were much more thickened on the left side where the inflammation had been more severe with formation of the abscesses. I carried the dissection distally to a point where I thought the bowel wall would be healthy enough for placement of the distal staple line. However, once the bowel wall had been exposed I attempted to place the 60 cm stapler and the tissues were too thick to allow closure of the device. This appeared to be related to some scarring on the left posterolateral aspect of the colon. I therefore carried the dissection further distal an additional 2-3 cm. At this point, the bowel wall was exposed circumferentially and the stapler was placed and would close acceptably. The bowel was divided with two loads of the 60 mm stapler with green loads. The specimen was moved higher into the abdomen to allow inspection in the pelvis. The area was irrigated. There had been some oozing from the area of the previous abscesses and inflamed tissue but this stopped spontaneously. The end of the rectosigmoid was grasped and some of the pericolonic fibrofatty tissue was dissected around the edge of the staple line to facilitate placement of EEA stapler for anastomosis. I now returned to the proximal colon. I attempted to bring this down into the pelvis and it was clear that there was not adequate length of colon for a stapled anastomosis without tension. I therefore returned to further mobilization of the proximal colon. The patient was returned to a flat position and then subsequently to a 10 degree reverse Trendelenburg position as I continued the mobilization of the descending colon up around the splenic flexure and actually to free the distal portion of the transverse colon. Some additional dissection of the mesentery of the descending colon was undertaken and after completely mobilizing the splenic flexure there appeared to be adequate colon without tension. I had also freed some more anterior attachments of the greater omentum to the colon in the region of the splenic flexure. The patient was then returned to a 25 degree Trendelenburg position. The pelvis was inspected and there was no evidence of any bleeding. The robot was then undocked. Using hand instruments and a standard laparoscopic, the specimen and the end of the descending colon were grasped through the existing ports. Dr. Alvarado then presented to the OR to assist in the preparation for the anastomosis and the actual anastomosis. An incision was made along the midline at the supraumbilical site and this port was removed. An Vahe retractor was inserted. The specimen was delivered through the abdominal wall. The colon was quite thickened and scarred. The end of the descending colon was then delivered through the incision. Some fibrofatty tissue at the tip of the colon was removed. The staple line was excised. A small diverticulum near the end of the colon was incorporated into the open end of the colon. A 25 mm EEA sizer would not insert completely into the colon. A pursestring suture of #2-0 Prolene was placed and the anvil of a 25 mm stapler was inserted into the colon without difficulty. The pursestring was tied down and a second pursestring catching the edges of the tissue was applied to snug the tissues around the post of the anvil more securely. This end of the colon was then washed and inserted into the abdomen. The surgical team changed gloves at this point. The peritoneum was then closed with a running suture of #1 Vicryl. The fascia was closed with interrupted simple sutures of #1 Vicryl. The patient's abdomen was then inflated. The robot was brought back into position and the three existing arms were docked. Two grasping retractors and the camera were inserted. The post of the anvil was then grasped. Dr. Alvarado moved to the perineum and the stapler was inserted. It was directed up to the end of the colon and the post of the stapler was advanced through the end of the rectum just adjacent to the staple line. The anvil was attached and the stapler was then closed and fired by Dr. Alvarado. Inspection revealed two excellent tissue doughnuts. The pelvis was filled with some saline and Dr. Alvarado proceeded with an endoscopic exam, which identified a secure anastomosis with no evidence of bleeding and what appeared to be excellent vascularity. Insufflation of air showed no leak on inspection within the pelvis. The pelvis was then cleared of irrigation. The patient was then returned to a flat position. The robotic instruments were removed and the robot was undocked and withdrawn. The patient's abdomen was deflated and the trocars were removed. The fascia at the 12 mm port was identified and closed with a single suture of #2-0 Vicryl. The skin incisions were then all closed with buried #4-0 Vicryl with a running subcuticular suture for the supraumbilical site. Steri-Strips were applied, followed by sterile dressings. Some additional local anesthesia had been achieved along the supraumbilical incision. The patient tolerated the procedure well without apparent complication. I elected to remove his Eldridge catheter at the conclusion of procedure and this was accomplished. He was then awakened in the operating room, extubated and moved to the recovery room in stable condition. AMARILIS
== END 2020-02-08 18:18 | disposition home or self-care (01) | DRG 221 ==
LOC: M OR 08:21 → M MSPAV 18:56
PROVIDERS: ADMIT Surgery; ATTEND Surgery
PROC: 8E0W4CZ Robotic Assisted Procedure of Trunk Region, Percutaneous Endoscopic Approach (ICD-10-PCS; 2020-02-06)
PROC: 0DBN4ZZ Excision of Sigmoid Colon, Percutaneous Endoscopic Approach (ICD-10-PCS; principal; 2020-02-06 10:00)
DX: K57.20 Diverticulitis of large intestine with perforation and abscess without bleeding (principal); E66.9 Obesity, unspecified; E03.9 Hypothyroidism, unspecified; K21.9 Gastro-esophageal reflux disease without esophagitis; Z79.899 Other long term (current) drug therapy; Z96.651 Presence of right artificial knee joint; Z96.652 Presence of left artificial knee joint

== ENCOUNTER → 2020-05-06 | Outpatient (REF) | payer BC ==
[~2020-05-06] MED LIST changes: +2 ANTIBIOTICS PO; -LR 1,000 ML IV ONE
[2020-05-06 12:45] LABS: BASO # 0.1 10^3/uL (0.0-0.2); BASO % 1.6 % (0.0-1.0); EOS # 0.4 10^3/uL (0.0-0.5); EOS % 6.4 % (0.0-3.0); HEMATOCRIT 49.7 % (42.0-52.0); HEMOGLOBIN 15.9 g/dl (13.5-17.5); LYMPH # 1.5 10^3/uL (1.5-5.0); LYMPH % 26.9 % (24.0-44.0); MEAN CORPUSCULAR HEMOGLOBIN 29.7 pg (27.0-33.0); MEAN CORPUSCULAR VOLUME 92.7 fl (80.0-96.0); MONO # 0.6 10^3/uL (0.0-0.8); NEUTROPHILS # 3.1 10^3/uL (1.5-8.5); NEUTROPHILS % 54.4 % (36.0-66.0); PLATELET COUNT, AUTOMATED 194 10^3/uL (150-450); RED BLOOD COUNT 5.36 10^6/uL (4.30-6.10); WHITE BLOOD COUNT 5.6 10^3/uL (4.0-10.0)
[2020-05-06 13:22] LABS: ALT/SGPT 47 U/L (12-78); BILIRUBIN,TOTAL 0.5 MG/DL (0.2-1.0); BLOOD UREA NITROGEN 21 MG/DL (7-18); CALCIUM LEVEL 9.4 MG/DL (8.8-10.2); CARBON DIOXIDE LEVEL 28 MEQ/L (21-32); CHLORIDE LEVEL 105 MEQ/L (98-107); CHOLESTEROL LEVEL 268 MG/DL (<200); CHOLESTEROL RISK RATIO 3.828 (<5); CREATININE FOR GFR 1.02 MG/DL (0.70-1.30); GLOMERULAR FILTRATION RATE > 60.0 (>49); GLUCOSE, FASTING 93 MG/DL (70-100); HDL CHOLESTEROL 70 MG/DL (>40); LDL CHOLESTEROL 176 MG/DL (<100); NON-HDL-C 198 MG/DL; SODIUM LEVEL 138 MEQ/L (136-145); TOTAL PROTEIN 7.7 GM/DL (6.4-8.2); TRIGLYCERIDES LEVEL 110 MG/DL (<150)
[2020-05-06 13:25] LABS: HEMOGLOBIN A1c 5.1 %
== END ==
LOC: M SFHCADAM 09:32
PROVIDERS: ATTEND Physician Assistant Medical
DX: E66.01 Morbid (severe) obesity due to excess calories (principal); E03.9 Hypothyroidism, unspecified

== ENCOUNTER 2020-07-22 08:29 | Emergency (ER) | payer BC ==
[~2020-07-22] VITALS: Ht 180.3 cm; Wt 119.5 kg
[2020-07-22] MEDS ORDERED: ALBUTEROL 90 MCG/ACT 8GM HFA INHALER INH ONE (09:15)
[2020-07-22 09:45] LABS: BASO # 0.1 10^3/uL (0.0-0.2); BASO % 1.5 % (0.0-1.0); EOS # 0.4 10^3/uL (0.0-0.5); HEMATOCRIT 47.7 % (42.0-52.0); HEMOGLOBIN 15.9 g/dl (13.5-17.5); LYMPH # 1.2 10^3/uL (1.5-5.0); LYMPH % 20.6 % (24.0-44.0); MEAN CORPUSCULAR HEMOGLOBIN 29.9 pg (27.0-33.0); MEAN CORPUSCULAR HGB CONC 33.3 g/dl (32.0-36.5); MEAN CORPUSCULAR VOLUME 89.8 fl (80.0-96.0); MONO # 0.6 10^3/uL (0.0-0.8); NEUTROPHILS # 3.5 10^3/uL (1.5-8.5); NEUTROPHILS % 59.4 % (36.0-66.0); PLATELET COUNT, AUTOMATED 173 10^3/uL (150-450); RED BLOOD COUNT 5.31 10^6/uL (4.30-6.10); WHITE BLOOD COUNT 5.8 10^3/uL (4.0-10.0)
[2020-07-22 10:07] LABS: BLOOD UREA NITROGEN 21 MG/DL (7-18); CALCIUM LEVEL 8.7 MG/DL (8.8-10.2); CARBON DIOXIDE LEVEL 23 MEQ/L (21-32); CHLORIDE LEVEL 105 MEQ/L (98-107); CK-MB VALUE MASS 3.1 NG/ML (<3.6); CPK CREATINE PHOSPHOKINASE 175 U/L (39-308); CREATININE FOR GFR 0.93 MG/DL (0.70-1.30); GLOMERULAR FILTRATION RATE > 60.0 (>49); GLUCOSE, FASTING 121 MG/DL (70-100); MB/CK RELATIVE INDEX 1.77 (< OR =4); NT-PRO BNP 15 PG/ML (<125); POTASSIUM SERUM 4.3 MEQ/L (3.5-5.1); SODIUM LEVEL 137 MEQ/L (136-145); TROPONIN I < 0.02 NG/ML (< 0.10)
--- NOTE | 2020-07-22 10:11 | REP ---
INDICATION: sob COMPARISON: 05/23/2018 TECHNIQUE: Portable AP view of the chest FINDINGS: The mediastinum and cardiac silhouette are stable and within normal limits for portable technique. The lung ragland are clear without acute consolidation, effusion, or pneumothorax. Skeletal structures are intact. IMPRESSION: No acute cardiopulmonary process appreciated. <Electronically signed by Ramon Hawthorne > 07/22/20 [id number]
[2020-07-22] MEDS ORDERED: VENTAER INH (10:52)
[2020-07-22 11:14] VITALS: BP 148/91
--- NOTE | 2020-07-23 06:33 | ECGEPIP ---
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 Order Number: [id number] Reading MD: Aneesh Guerrier Measurements Intervals [place] Rate: 89 P: 28 SD: 128 QRS: 39 QRSD: 121 T: 13 QT: 369 QTc: 451 Interpretive Statements SINUS RHYTHM RIGHT BUNDLE BRANCH BLOCK NO PRIORS FOR COMPARISON Electronically Signed on 07-23-2020 6:33:09 EST by Aneesh Guerrier
== END 2020-07-22 11:16 | disposition home or self-care (01) ==
LOC: M ED 08:29
DX: R06.02 Shortness of breath (principal); I45.10 Unspecified right bundle-branch block; E03.9 Hypothyroidism, unspecified; J30.2 Other seasonal allergic rhinitis; Z87.891 Personal history of nicotine dependence; Z79.899 Other long term (current) drug therapy
CPT/HCPCS: 36415; 71045; 80048; 82550; 82553; 83880; 84443; 84484; 85025; 85379; 93005; 94640; 99284; U0002

== ENCOUNTER → 2020-08-09 | Outpatient (REF) | payer BC ==
[~2020-08-09] MED LIST changes: +VENTAER INH
== END ==
LOC: M SFHCADAM 16:32
PROVIDERS: ATTEND Physician Assistant Medical
DX: R05 Cough (principal)

== ENCOUNTER → 2020-08-23 | Outpatient (CLI) | payer BC ==
--- NOTE | 2020-08-23 14:30 | REP ---
INDICATION: COUGH COVID 19. COMPARISON: Comparison chest x-ray 07/22/2020. TECHNIQUE: Two views.. FINDINGS: The lungs are well inflated and free of infiltrate. The pleural angles are sharp. The heart size is normal. Pulmonary vasculature is not increased. No significant bony abnormality is seen. IMPRESSION: Negative chest x-ray. <Electronically signed by Reynold Stephenson > 08/23/20 [id number]
== END ==
LOC: M ADAMS 14:02
PROVIDERS: ATTEND Physician Assistant Medical
DX: R05 Cough (principal); U07.1 COVID-19

== ENCOUNTER → 2021-08-28 | Outpatient (REF) | payer BC ==
[2021-08-28 12:52] LABS: BASO # 0.1 10^3/uL (0.0-0.2); BASO % 1.9 % (0.0-1.0); EOS # 0.3 10^3/uL (0.0-0.5); EOS % 7.8 % (0.0-3.0); HEMATOCRIT 46.9 % (42.0-52.0); HEMOGLOBIN 15.5 g/dl (13.5-17.5); LYMPH # 1.5 10^3/uL (1.5-5.0); LYMPH % 34.2 % (24.0-44.0); MEAN CORPUSCULAR HEMOGLOBIN 29.9 pg (27.0-33.0); MEAN CORPUSCULAR VOLUME 90.4 fl (80.0-96.0); MONO # 0.6 10^3/uL (0.0-0.8); NEUTROPHILS # 1.8 10^3/uL (1.5-8.5); NEUTROPHILS % 42.9 % (36.0-66.0); PLATELET COUNT, AUTOMATED 161 10^3/uL (150-450); RED BLOOD COUNT 5.19 10^6/uL (4.30-6.10); WHITE BLOOD COUNT 4.2 10^3/uL (4.0-10.0)
[2021-08-28 13:21] LABS: ALBUMIN 4.1 GM/DL (3.2-5.2); ALT/SGPT 67 U/L (12-78); BILIRUBIN,TOTAL 0.8 MG/DL (0.2-1.0); BLOOD UREA NITROGEN 25 MG/DL (7-18); CALCIUM LEVEL 8.8 MG/DL (8.8-10.2); CARBON DIOXIDE LEVEL 24 MEQ/L (21-32); CHLORIDE LEVEL 108 MEQ/L (98-107); CHOLESTEROL LEVEL 234 MG/DL (<200); CREATININE FOR GFR 1.06 MG/DL (0.70-1.30); GLOMERULAR FILTRATION RATE > 60.0 (>49); GLUCOSE, FASTING 119 MG/DL (70-100); HDL CHOLESTEROL 60 MG/DL (>40); LDL CHOLESTEROL 152 MG/DL (<100); NON-HDL-C 174 MG/DL; POTASSIUM SERUM 4.6 MEQ/L (3.5-5.1); SODIUM LEVEL 138 MEQ/L (136-145); TOTAL PROTEIN 7.1 GM/DL (6.4-8.2); TRIGLYCERIDES LEVEL 108 MG/DL (<150)
[2021-08-28 13:40] LABS: HEMOGLOBIN A1c 5.4 %
== END ==
LOC: M SFHCADAM 09:20
PROVIDERS: ATTEND Physician Assistant Medical
DX: E66.01 Morbid (severe) obesity due to excess calories (principal); E03.9 Hypothyroidism, unspecified; N40.0 Benign prostatic hyperplasia without lower urinary tract symptoms
CPT/HCPCS: 80053; 80061; 83036; 84443; 85025; G0103

== ENCOUNTER → 2021-11-27 | Outpatient (REF) | payer BC | LOC: M SFHCPLAZ 13:09 | PROVIDERS: ATTEND Physician Assistant | DX: R05.9 Cough, unspecified (principal) ==

== ENCOUNTER → 2022-03-24 | Outpatient (CLI) | payer BC | LOC: M LABSMTC 09:55 | PROVIDERS: ATTEND Family Medicine | DX: Z20.822 Contact with and (suspected) exposure to COVID-19 (principal) | CPT/HCPCS: 87635; C9803 ==

== ENCOUNTER → 2022-12-16 | Outpatient (REF) | payer OTHER ==
[2022-12-16 16:12] LABS: BASO # 0.1 10^3/uL (0.0-0.2); BASO % 1.7 % (0.0-1.0); EOS # 0.3 10^3/uL (0.0-0.5); EOS % 7.8 % (0.0-3.0); HEMATOCRIT 46.1 % (42.0-52.0); HEMOGLOBIN 15.7 g/dl (13.5-17.5); LYMPH # 1.4 10^3/uL (1.5-5.0); LYMPH % 33.5 % (24.0-44.0); MEAN CORPUSCULAR HGB CONC 34.1 g/dl (32.0-36.5); MEAN CORPUSCULAR VOLUME 90.9 fl (80.0-96.0); MONO # 0.6 10^3/uL (0.0-0.8); MONO % 14.4 % (2.0-8.0); NEUTROPHILS # 1.7 10^3/uL (1.5-8.5); NEUTROPHILS % 42.1 % (36.0-66.0); PLATELET COUNT, AUTOMATED 165 10^3/uL (150-450); RED BLOOD COUNT 5.07 10^6/uL (4.30-6.10); WHITE BLOOD COUNT 4.1 10^3/uL (4.0-10.0)
[2022-12-16 16:17] LABS: ALBUMIN 4.2 G/DL (3.2-5.2); ALKALINE PHOSPHATASE 73 U/L (46-116); ALT/SGPT 71 U/L (7.0-40); AST/SGOT 41 U/L (<34); BILIRUBIN,TOTAL 1.2 MG/DL (0.3-1.2); BLOOD UREA NITROGEN 15 MG/DL (9-23); CALCIUM LEVEL 9.2 MG/DL (8.3-10.6); CARBON DIOXIDE LEVEL 26 MMOL/L (20-31); CHLORIDE LEVEL 104 MMOL/L (98-107); CHOLESTEROL LEVEL 253 MG/DL (<200); CHOLESTEROL RISK RATIO 4.27 (<5); CREATININE FOR GFR 1.04 MG/DL (0.70-1.30); GLOMERULAR FILTRATION RATE > 60.0 (>49); GLUCOSE, FASTING 94 MG/DL (74-106); HDL CHOLESTEROL 59.2 MG/DL (>40); NON-HDL-C 193.8 MG/DL; POTASSIUM SERUM 4.4 MMOL/L (3.5-5.1); SODIUM LEVEL 135 MMOL/L (136-145); TOTAL PROTEIN 7.1 G/DL (5.7-8.2); TRIGLYCERIDES LEVEL 154 MG/DL (<150)
[2022-12-16 16:19] LABS: THYROID STIMULATING HORMONE 4.526 uIU/ML (0.55-4.78)
[2022-12-16 16:46] LABS: HEMOGLOBIN A1c 5.3 % (4.0-6.0)
== END ==
LOC: M SFHCADAM 11:47
PROVIDERS: ATTEND Physician Assistant Medical
DX: N40.0 Benign prostatic hyperplasia without lower urinary tract symptoms (principal); E66.01 Morbid (severe) obesity due to excess calories; E03.9 Hypothyroidism, unspecified
CPT/HCPCS: 80053; 80061; 83036; 84443; 85025; G0103

== ENCOUNTER → 2023-05-05 | Outpatient (REF) | payer OTHER ==
[2023-05-05 12:44] LABS: BASO # 0.1 10^3/uL (0.0-0.2); BASO % 1.9 % (0.0-1.0); EOS # 0.4 10^3/uL (0.0-0.5); EOS % 8.1 % (0.0-3.0); HEMATOCRIT 45.5 % (42.0-52.0); HEMOGLOBIN 15.3 g/dl (13.5-17.5); LYMPH # 1.5 10^3/uL (1.5-5.0); MEAN CORPUSCULAR HGB CONC 33.6 g/dl (32.0-36.5); MEAN CORPUSCULAR VOLUME 92.3 fl (80.0-96.0); MONO # 0.6 10^3/uL (0.0-0.8); MONO % 11.2 % (2.0-8.0); NEUTROPHILS # 2.6 10^3/uL (1.5-8.5); PLATELET COUNT, AUTOMATED 220 10^3/uL (150-450); RED BLOOD COUNT 4.93 10^6/uL (4.30-6.10); WHITE BLOOD COUNT 5.3 10^3/uL (4.0-10.0)
[2023-05-05 12:56] LABS: INR 1.04; PROTHROMBIN TIME 13.3 SECONDS (12.5-14.5)
[2023-05-05 13:16] LABS: ALKALINE PHOSPHATASE 71 U/L (46-116); ALT/SGPT 49 U/L (7.0-40); AST/SGOT 28 U/L (<34); BILIRUBIN,DIRECT 0.3 MG/DL (<0.4); BILIRUBIN,TOTAL 0.7 MG/DL (0.3-1.2); BLOOD UREA NITROGEN 18 MG/DL (9-23); CALCIUM LEVEL 9.5 MG/DL (8.3-10.6); CARBON DIOXIDE LEVEL 27 MMOL/L (20-31); CHLORIDE LEVEL 106 MMOL/L (98-107); CREATININE FOR GFR 0.96 MG/DL (0.70-1.30); GLOMERULAR FILTRATION RATE > 60.0 (>49); GLUCOSE, FASTING 99 MG/DL (74-106); POTASSIUM SERUM 4.7 MMOL/L (3.5-5.1); SODIUM LEVEL 140 MMOL/L (136-145); TOTAL PROTEIN 7.4 G/DL (5.7-8.2)
== END ==
LOC: M SFHCADAM 11:37
PROVIDERS: ATTEND Physician Assistant Medical
DX: R10.84 Generalized abdominal pain (principal); R19.5 Other fecal abnormalities

== ENCOUNTER → 2025-04-09 | Outpatient (REF) | payer MEDICARE ==
[2025-04-09 18:36] LABS: BASO # 0.1 10^3/uL (0.0-0.2); BASO % 1.5 % (0.0-1.0); EOS # 0.4 10^3/uL (0.0-0.5); EOS % 6.3 % (0.0-3.0); LYMPH # 2.1 10^3/uL (1.5-5.0); LYMPH % 36.5 % (24.0-44.0); MONO # 0.7 10^3/uL (0.0-0.8); MONO % 11.7 % (2.0-8.0); NEUTROPHILS # 2.5 10^3/uL (1.5-8.5); NEUTROPHILS % 43.7 % (36.0-66.0); PLATELET COUNT, AUTOMATED 168 10^3/uL (150-450)
[2025-04-09 18:41] LABS: ALT/SGPT 45.0 U/L (7.0-40); AST/SGOT 29.0 U/L (<34); CALCIUM LEVEL 9.2 MG/DL (8.3-10.6); CARBON DIOXIDE LEVEL 26.0 MMOL/L (20-31); CHLORIDE LEVEL 104.0 MMOL/L (98-107); CHOLESTEROL LEVEL 252.0 MG/DL (<200); CHOLESTEROL RISK RATIO 4.12 (<5); CREATININE FOR GFR 1.15 MG/DL (0.70-1.30); GLOMERULAR FILTRATION RATE 70.6 (>49); LDL CHOLESTEROL 153.1 MG/DL (<100); NON-HDL-C 190.9 MG/DL; POTASSIUM SERUM 4.5 MMOL/L (3.5-5.1); PSA SCREENING 0.46 NG/ML (< 4.00); SODIUM LEVEL 139.0 MMOL/L (136-145); TRIGLYCERIDES LEVEL 189.0 MG/DL (<150)
[2025-04-09 18:42] LABS: FREE T4 1.27 NG/DL (0.89-1.76); TOTAL 25(OH) VITAMIN D 12.6 NG/ML (20.0-100.0); VITAMIN B12 LEVEL 468.0 PG/ML (211-911)
[2025-04-09 19:26] LABS: ESTIMATED AVERAGE GLUCOSE 108.0 MG/DL (60-110)
== END ==
LOC: M SFHCADAM 14:13
PROVIDERS: ATTEND Physician Assistant Medical
DX: Z00.00 Encounter for general adult medical examination without abnormal findings (principal); I10 Essential (primary) hypertension; E66.01 Morbid (severe) obesity due to excess calories; E03.9 Hypothyroidism, unspecified; L50.3 Dermatographic urticaria; N40.0 Benign prostatic hyperplasia without lower urinary tract symptoms; R20.2 Paresthesia of skin; Z12.5 Encounter for screening for malignant neoplasm of prostate; Z79.899 Other long term (current) drug therapy
CPT/HCPCS: 80053; 80061; 82306; 82607; 82746; 83036; 84439; 84443; 85025; G0103

== ENCOUNTER → 2025-04-25 | Outpatient (CLI) | payer MEDICARE | LOC: M ADAMS 13:23 | PROVIDERS: ATTEND Physician Assistant Medical | DX: M25.511 Pain in right shoulder (principal); M19.011 Primary osteoarthritis, right shoulder ==